=== PATIENT | male | born 1940 | race Caucasian/White ===

== ENCOUNTER 2019-10-22 12:56 | Inpatient (IN) | payer MEDICARE, OTHER ==
[~2019-10-22] VITALS: Ht 172.7 cm; Wt 84.7 kg
[2019-10-22] MEDS ORDERED: IPRATROPIUM BROM 0.5 MG/2.5ML INH SOL HHN ONE (13:30)
[2019-10-22] MEDS ORDERED: methylPREDNISolone SOD SUCC 125 MG/2 ML VL IV ONE (13:30)
[2019-10-22] MEDS ORDERED: ALBUTEROL SULF 2.5 MG/0.5ML(0.5%) NEB SOLN HHN ONE (13:30)
[2019-10-22 13:43] LABS: Basophils # (auto) 0 uL; Basophils % (auto) 0.3 % (0.0-2.0); Eosinophils # (auto) 0 uL; Eosinophils % (auto) 0.5 % (0.0-7.0); Hematocrit 37.6 % (41.0-53.0); Hemoglobin 12.4 g/dL (13.5-17.5); Lymphocytes # (auto) 0.5 uL; Lymphocytes % (auto) 5.7 % (10.0-50.0); Mean Corpuscular Volume 93.9 fL (80.0-100.0); Monocytes # (auto) 0.6 uL; Monocytes % (auto) 6.6 % (0.0-12.0); Neutrophils # (auto) 7.4 uL; Neutrophils % (auto) 86.9 % (37.0-80.0); Platelet Count (auto) 230 10^3/uL (140-450); Red Blood Cells 4.01 10^6/uL (4.5-5.90); Red Cell Distribution Width 15.2 % (11.8-14.3); White Blood Cell 8.5 10^3/uL (4.4-10.8)
[2019-10-22 14:00] LABS: Alanine Aminotransferase 24 U/L (16-61); Albumin 3.6 g/dL (3.4-5.0); Anion Gap 9 (5-15); Aspartate Aminotransferase 11 U/L (15-37); BUN/Creatinine Ratio 24.8; Blood Urea Nitrogen 32 mg/dL (7-18); Calcium 9.6 mg/dL (8.5-10.1); Carbon Dioxide 25 mmol/L (21-32); Chloride 108 mmol/L (98-107); GFR African American 69 mL/min; GFR Non-African American 57 mL/min; Glucose 118 mg/dL (74-106); Potassium 4.6 mmol/L (3.5-5.1); Sodium 142 mmol/L (136-145)
[2019-10-22 14:02] LABS: Lactic Acid w/Reflex 2.1 mmol/L (0.4-2.0)
[2019-10-22 14:05] LABS: Alkaline Phosphatase 61 U/L (45-117); Bilirubin, Total 0.4 mg/dL (0.2-1.0); Total Protein 7.6 g/dL (6.4-8.2)
[2019-10-22 18:21] LABS: INR 2.32 (0.9-1.15); Partial Thromboplastin Time 36.5 sec (23.64-32.05)
[2019-10-22] MEDS ORDERED: ACETAMINOPHEN 325 MG TAB PO ONE (18:45)
[2019-10-22] MEDS ORDERED: MORPHINE SULF INJ 2 MG/ML SYRINGE 1ML IV PRN ×2 (19:00)
[2019-10-22] MEDS ORDERED: ONDANSETRON HCL 4 MG/2 ML VIAL IV PRN (19:00)
[2019-10-22] MEDS ORDERED: NITROGLYCERIN 0.4 MG SL TAB SL PRN (19:00)
[2019-10-22] MEDS ORDERED: AZITHROMYCIN 250 MG TAB PO ONE (19:00)
[2019-10-22 20:30] VITALS: BP 122/77
--- NOTE | 2019-10-22 20:30 | NUR ---
Telemetry admit from ER PURVIMELO admitted to Telemetry unit after SBAR received. Patient oriented to Kathi Muniz, primary RN, unit, room, bed, and unit policies regarding patient care and visiting hours. Patient now on continuous telemetry monitoring, tele box # 26 and telemetry reading on arrival to unit is 102. Patient placed on bedside oxygen, weighed by bedscale and encouraged to call if they need something. All questions and concerns addressed, patient verbalized understanding. Note:
[2019-10-22 21:08] VITALS: BP 130/79
[2019-10-22] MEDS: FUROSEMIDE 20 MG/2 ML VIAL IV SCH (21:08)
[2019-10-22] MEDS: cefTRIAXone 1GM/50ML D5W 50 ML IV SCH (21:09)
[2019-10-22] MEDS ORDERED: IPRATROPIUM BROM 0.5 MG/2.5ML INH SOL ONE (21:43)
[2019-10-22] MEDS ORDERED: ALBUTEROL SULF 2.5 MG/0.5ML(0.5%) NEB SOLN ONE (21:43)
[2019-10-22] MEDS: IPRATROPIUM BROM 0.5 MG/2.5ML INH SOL NEB SCH (21:58)
[2019-10-22] MEDS: ALBUTEROL SULF 2.5 MG/0.5ML(0.5%) NEB SOLN NEB SCH (21:58)
[2019-10-22] MEDS: methylPREDNISolone SOD SUCC 125 MG/2 ML VL IV SCH (22:02)
[2019-10-22] MEDS: DILTIAZEM HCL 60 MG TAB PO SCH (22:04)
[2019-10-22 23:30] LABS: Urine Bacteria NONE SEEN /hpf (None Seen); Urine Blood Negative /uL (Negative); Urine Hyaline Cast FEW /lpf (0 - 2); Urine Specific Gravity 1.011 (1.001-1.035); Urine WBC 1 /hpf (0 - 3)
[2019-10-23] VITALS (7 sets, daily range): BP systolic 105–137; BP diastolic 53–77
[2019-10-23] MEDS: ACETAMINOPHEN 500 MG TAB PO PRN ×3 (01:09→19:03)
--- NOTE | 2019-10-23 02:30 | NUR ---
FOUND PT WITH CPAP MASK REMOVED ON ROOM AIR SPO2 92%, PT STATED HE CAN'T TOLERATE AT THIS TIME. CPAP IS GIVING HIM A HEADACHE. PT PLACED ON 3LPM NC AND TOLERATING WELL.
[2019-10-23] MEDS: HYDROcodone-ACET 5/325MG TAB PO PRN ×2 (04:10→21:29)
[2019-10-23] MEDS: FUROSEMIDE 20 MG/2 ML VIAL IV SCH ×2 (05:42→18:00)
[2019-10-23] MEDS: DILTIAZEM HCL 60 MG TAB PO SCH ×3 (05:43→21:24)
[2019-10-23 06:02] LABS: Basophils # (auto) 0 uL; Eosinophils # (auto) 0 uL; Hematocrit 35.2 % (41.0-53.0); Hemoglobin 11.5 g/dL (13.5-17.5); Lymphocytes # (auto) 0.4 uL; Lymphocytes % (auto) 2.7 % (10.0-50.0); Mean Corpuscular Hemoglobin 30.4 pg (28.0-32.0); Mean Corpuscular Hgb Conc. 32.5 g/dL (32.0-36.0); Mean Corpuscular Volume 93.5 fL (80.0-100.0); Monocytes # (auto) 0.7 uL; Monocytes % (auto) 4.6 % (0.0-12.0); Neutrophils # (auto) 13.5 uL; Neutrophils % (auto) 92.7 % (37.0-80.0); Platelet Count (auto) 219 10^3/uL (140-450); Red Blood Cells 3.77 10^6/uL (4.5-5.90); White Blood Cell 14.6 10^3/uL (4.4-10.8)
[2019-10-23] MEDS: ALBUTEROL SULF 2.5 MG/0.5ML(0.5%) NEB SOLN NEB SCH ×3 (06:16→19:32)
[2019-10-23] MEDS: IPRATROPIUM BROM 0.5 MG/2.5ML INH SOL NEB SCH ×3 (06:16→19:32)
[2019-10-23 06:21] LABS: BUN/Creatinine Ratio 28.8; Calcium 9.1 mg/dL (8.5-10.1); Potassium 4.5 mmol/L (3.5-5.1)
[2019-10-23 06:26] LABS: INR 2.52 (0.9-1.15)
--- NOTE | 2019-10-23 07:30 | NUR ---
Opening Shift Note Assumed care of patient, awake and alert. No S/S of distress/SOB. Pt denies having any pain at this time. Bed in lowest and locked position with side rails up x2 and call light within reach. Instructed on POC and to call for assist PRN, will continue to monitor for changes Q1hr and PRN.
[2019-10-23] MEDS ORDERED: cefTRIAXone 1GM/50ML D5W 50 ML IV SCH (09:00)
[2019-10-23] MEDS ORDERED: HYDR-4833 PO (09:31)
[2019-10-23] MEDS ORDERED: LISI-285 PO (09:31)
[2019-10-23] MEDS ORDERED: POTA1TAB61 PO (09:31)
[2019-10-23] MEDS ORDERED: TAMS0.4C36 PO (09:31)
[2019-10-23] MEDS ORDERED: FURO40TA4 PO (09:31)
[2019-10-23] MEDS ORDERED: WARF5TAB71 PO (09:31)
[2019-10-23] MEDS ORDERED: PRE1T PO (09:31)
[2019-10-23] MEDS ORDERED: AZITHROMYCIN 250 MG TAB PO SCH (10:00)
[2019-10-23] MEDS ORDERED: FAMOTIDINE 20 MG TAB PO SCH (10:00)
[2019-10-23] MEDS: methylPREDNISolone SOD SUCC 125 MG/2 ML VL IV SCH ×2 (10:15→21:23)
[2019-10-23] MEDS: cefTRIAXone 1GM/50ML D5W 50 ML IV SCH ×2 (10:16→20:37)
[2019-10-23] MEDS ORDERED: AZITHROMYCIN 500MG/ 250ML 250 ML IV ONE (11:15)
--- NOTE | 2019-10-23 11:26 | NUR ---
SPUTUM SAMPLE PT COUGHED UP SPUTUM SAMPLE INTO SPECIMEN CUP. SAMPLE SENT TO LAB.
--- NOTE | 2019-10-23 14:45 | NUR ---
PAGED DR. YA. AWAITING CALL BACK.
--- NOTE | 2019-10-23 14:48 | NUR ---
RECEIVED CALL FROM DR. YA. RN UPDATED DR. YA ON PT STATUS. AWARE. NO NEW ORDERS RECEIVED AT THIS TIME.
[2019-10-23] MEDS ORDERED: WARFARIN SODIUM 1 MG TAB PO ONE (17:00)
--- NOTE | 2019-10-23 18:00 | NUR ---
DR. YA AT PTS BEDSIDE.
--- NOTE | 2019-10-23 19:20 | NUR ---
assumed care, pt. awake, relatives at bedside, no c/o headache at this time, no sob.
[2019-10-23] MEDS: BUDESONIDE (INHALATION) 0.5 MG/2 ML NEB NEB SCH (19:32)
[2019-10-23] MEDS: POTASSIUM CHL 10 Meq TABLET PO SCH (21:25)
--- NOTE | 2019-10-24 04:08 | NUR ---
RT NOTE ROUTINE CPAP CHECK DONE. PT IS ON HOSPITAL OWNED CPAP RESPIRATORY 1 WITH MEDIUM MASK ON STATED SETTINGS. CPAP IS PLUGGED TO RED OUTLET. BEDSIDE POX NOTED. PT IS SLEEPING COMFORTABLY AND IS TOLERATING CPAP WELL. WATER LEVEL ADEQUATE. NO SIGNS OF ANY RESPIRATORY DISTRESS NOTED. WILL CONTINUE TO MONITOR PT. POX 98% Addendum: 10/24/19 at 0421 by Ladan Monahan RT Amended: Links added.
[2019-10-24 05:00] VITALS: BP 169/76
[2019-10-24] MEDS: FUROSEMIDE 20 MG/2 ML VIAL IV SCH (05:21)
[2019-10-24] MEDS: DILTIAZEM HCL 60 MG TAB PO SCH ×3 (05:21→21:32)
[2019-10-24] MEDS: ACETAMINOPHEN 500 MG TAB PO PRN ×2 (05:22→14:21)
[2019-10-24 06:06] LABS: INR 2.46 (0.9-1.15)
[2019-10-24 06:09] LABS: BUN/Creatinine Ratio 36.8; Calcium 9.5 mg/dL (8.5-10.1); Magnesium 2.3 mg/dL (1.6-2.6); Potassium 4.5 mmol/L (3.5-5.1)
[2019-10-24] MEDS: BUDESONIDE (INHALATION) 0.5 MG/2 ML NEB NEB SCH ×2 (07:17→18:37)
[2019-10-24] MEDS: ALBUTEROL SULF 2.5 MG/0.5ML(0.5%) NEB SOLN NEB SCH ×3 (07:17→18:30)
[2019-10-24] MEDS: IPRATROPIUM BROM 0.5 MG/2.5ML INH SOL NEB SCH ×3 (07:17→18:30)
--- NOTE | 2019-10-24 07:50 | NUR ---
Patient in bed, awake, oriented x4, coughing noted. On O2 at 4 LPM. CPAP at bedside to use at bedtime.
[2019-10-24] MEDS: AZITHROMYCIN 500MG/ 250ML 250 ML IV SCH (09:58)
[2019-10-24] MEDS: cefTRIAXone 1GM/50ML D5W 50 ML IV SCH ×2 (09:58→21:31)
[2019-10-24] MEDS: methylPREDNISolone SOD SUCC 125 MG/2 ML VL IV SCH (09:59)
[2019-10-24] MEDS: POTASSIUM CHL 10 Meq TABLET PO SCH (09:59)
--- NOTE | 2019-10-24 10:00 | NUR ---
Family member at bedside.
--- NOTE | 2019-10-24 10:36 | NUR ---
Dr. Coronel at bedside. MD spoke with the patient and family member. Patient for possible discharge tomorrow.
--- NOTE | 2019-10-24 12:00 | NUR ---
Dr. Muniz came over for Pulmonology Consult follow up. said patient can go home as per Pulmonology perspective. Patient to go home tomorrow, Monday as per Dr. Coronel.
[2019-10-24 13:00] VITALS: BP 129/75
--- NOTE | 2019-10-24 14:22 | NUR ---
Tylenol PO given for headache.
[2019-10-24 17:00] VITALS: BP 124/69
[2019-10-24] MEDS ORDERED: WARFARIN SODIUM 2.5 MG TAB PO ONE (17:00)
[2019-10-24] MEDS: HYDROcodone-ACET 5/325MG TAB PO PRN (18:02)
--- NOTE | 2019-10-24 18:02 | NUR ---
Campbell 5/325 PO given for shoulder pain.
[2019-10-24] MEDS: ACETYLCYSTEINE 10 %(100MG/ML) SOL 4ML NEB SCH (18:30)
--- NOTE | 2019-10-24 18:57 | NUR ---
Patient complained of diarrhea. Will page the hospitalist for anti-diarrheal medication.
--- NOTE | 2019-10-24 18:58 | NUR ---
Paged Hospitalist flight operations inspector.
--- NOTE | 2019-10-24 19:35 | NUR ---
Opening Shift Note Assumed care of patient, awake and alert, ambulatory with steady gait. No S/S of pain. Instructed on POC and to call for assist PRN, patient verbalized understanding, call light within reach, will continue to monitor for changes Q1hr and PRN.
[2019-10-24] MEDS ORDERED: LOPERAMIDE HCL 2 MG CAP PO PRN (21:15)
--- NOTE | 2019-10-24 21:15 | NUR ---
Patient complained of diarrhea 6x and requested medicine to stop it. Paged hospitalist and spoke to Ciaran and received new order at this time. Acknowledged and read back
[2019-10-24] MEDS: methylPREDNISolone SOD SUCC 40 MG/ML VL IV SCH (21:41)
[2019-10-24 22:00] VITALS: BP 127/76
--- NOTE | 2019-10-24 22:00 | NUR ---
CPAP applied by RT on duty
[2019-10-25] MEDS: HYDROcodone-ACET 5/325MG TAB PO PRN (04:47)
[2019-10-25 05:00] VITALS: BP 112/65
[2019-10-25] MEDS: DILTIAZEM HCL 60 MG TAB PO SCH (05:53)
[2019-10-25 05:59] LABS: INR 2.13 (0.9-1.15)
[2019-10-25 06:03] LABS: BUN/Creatinine Ratio 42.5; Calcium 9.3 mg/dL (8.5-10.1); Potassium 4.5 mmol/L (3.5-5.1)
[2019-10-25] MEDS: ALBUTEROL SULF 2.5 MG/0.5ML(0.5%) NEB SOLN NEB SCH ×3 (06:43→11:49)
[2019-10-25] MEDS: BUDESONIDE (INHALATION) 0.5 MG/2 ML NEB NEB SCH (06:43)
[2019-10-25] MEDS: ACETYLCYSTEINE 10 %(100MG/ML) SOL 4ML NEB SCH ×4 (06:43→11:49)
[2019-10-25] MEDS: IPRATROPIUM BROM 0.5 MG/2.5ML INH SOL NEB SCH ×3 (06:43→11:49)
--- NOTE | 2019-10-25 07:55 | NUR ---
Patient sitting up in bed, awake, oriented x4, on O2 at 4 LPM, coughing noted. No acute distress noted.
[2019-10-25] MEDS: cefTRIAXone 1GM/50ML D5W 50 ML IV SCH (08:20)
[2019-10-25] MEDS: methylPREDNISolone SOD SUCC 40 MG/ML VL IV SCH (09:27)
[2019-10-25] MEDS: AZITHROMYCIN 500MG/ 250ML 250 ML IV SCH (09:28)
--- NOTE | 2019-10-25 10:00 | NUR ---
Patient no complaints of pain.
--- NOTE | 2019-10-25 12:00 | NUR ---
Patient eating lunch. Family at bedside.
[2019-10-25 12:10] VITALS: BP 112/65
[2019-10-25] MEDS ORDERED: WARFARIN SODIUM 2 MG TAB PO ONE (17:00)
== END 2019-10-25 13:10 | disposition home or self-care (01) | DRG 193 ==
LOC: ER 12:56 → EDBD 12:56 → TELE 12:57 → TELE-CENTR 20:13
PROVIDERS: ADMIT Nurse Practitioner Acute Care; ATTEND Internal Medicine
PROC: 5A09357 Assistance with Respiratory Ventilation, Less than 24 Consecutive Hours, Continuous Positive Airway Pressure (ICD-10-PCS; principal; 2019-10-22)
PROC: 5A09357 Assistance with Respiratory Ventilation, Less than 24 Consecutive Hours, Continuous Positive Airway Pressure (ICD-10-PCS; 2019-10-23)
PROC: 5A09357 Assistance with Respiratory Ventilation, Less than 24 Consecutive Hours, Continuous Positive Airway Pressure (ICD-10-PCS; 2019-10-24)
DX: J18.9 Pneumonia, unspecified organism (principal); I50.43 Acute on chronic combined systolic (congestive) and diastolic (congestive) heart failure; J96.21 Acute and chronic respiratory failure with hypoxia; I13.0 Hypertensive heart and chronic kidney disease with heart failure and stage 1 through stage 4 chronic kidney disease, or unspecified chronic kidney disease; J44.1 Chronic obstructive pulmonary disease with (acute) exacerbation; I47.1 Supraventricular tachycardia; J44.0 Chronic obstructive pulmonary disease with (acute) lower respiratory infection; N18.3 Chronic kidney disease, stage 3 (moderate); I70.0 Atherosclerosis of aorta; M94.8X9 Other specified disorders of cartilage, unspecified sites; G89.29 Other chronic pain; I48.91 Unspecified atrial fibrillation; Z79.01 Long term (current) use of anticoagulants; Z82.49 Family history of ischemic heart disease and other diseases of the circulatory system; Z99.81 Dependence on supplemental oxygen; Z85.46 Personal history of malignant neoplasm of prostate; Z87.01 Personal history of pneumonia (recurrent); Z87.891 Personal history of nicotine dependence; Z86.711 Personal history of pulmonary embolism
CPT/HCPCS: 36415; 36600; 71045; 80048; 80053; 81001; 82805; 83605; 83735; 83880; 84484; 85025; 85610; 85730; 87040; 87070; 87205; 87493; 87804; 93306; 94640; 94644; 94660; 94668; 96374; G0378; J0696

== ENCOUNTER 2020-02-13 09:24 | Inpatient (IN) | payer MEDICARE ==
[~2020-02-13] VITALS: Ht 182.9 cm; Wt 87.0 kg
[~2020-02-13 09:24] MED LIST: FURO40TA4 PO; HYDR-4833 PO; LISI-285 PO; POTA1TAB61 PO; PRE1T PO; TAMS0.4C36 PO; WARF5TAB71 PO
[2020-02-13 10:00] LABS: Basophils # (auto) 0 10 ^3/uL (0-0.2); Basophils % (auto) 0.1 % (0.0-2.0); Eosinophils # (auto) 0 10 ^3/uL (0-0.8); Hematocrit 35.9 % (41.0-53.0); Hemoglobin 11.5 g/dL (13.5-17.5); Lymphocytes # (auto) 0.5 10 ^3/uL (0.4-5.4); Lymphocytes % (auto) 3.5 % (10.0-50.0); Mean Corpuscular Hgb Conc. 32.1 g/dL (32.0-36.0); Mean Corpuscular Volume 93.3 fL (80.0-100.0); Monocytes # (auto) 1.6 10 ^3/uL (0-1.3); Monocytes % (auto) 11.2 % (0.0-12.0); Neutrophils # (auto) 12.3 10 ^3/uL (1.6-8.6); Neutrophils % (auto) 85.2 % (37.0-80.0); Nucleated Red Blood Cells % 0.1 %; Platelet Count (auto) 323 10^3/uL (140-450); Red Blood Cells 3.85 10^6/uL (4.5-5.90); Red Cell Distribution Width 15.3 % (11.8-14.3); White Blood Cell 14.4 10^3/uL (4.4-10.8)
[2020-02-13 10:18] LABS: INR 3.55 (0.9-1.15); Partial Thromboplastin Time 55.8 sec (23.64-32.05)
[2020-02-13 10:20] LABS: Albumin 2.3 g/dL (3.4-5.0); Anion Gap 9 (5-15); Blood Urea Nitrogen 73 mg/dL (7-18); Carbon Dioxide 22 mmol/L (21-32); Chloride 106 mmol/L (98-107); Glucose 155 mg/dL (74-106); Potassium 4.7 mmol/L (3.5-5.1); Sodium 137 mmol/L (136-145)
[2020-02-13 10:25] LABS: Alanine Aminotransferase 18 U/L (16-61); Alkaline Phosphatase 71 U/L (45-117); Aspartate Aminotransferase 8 U/L (15-37); BUN/Creatinine Ratio 36.5; Bilirubin, Total 0.7 mg/dL (0.2-1.0); GFR African American 41 mL/min; GFR Non-African American 34 mL/min; Total Protein 7.4 g/dL (6.4-8.2)
[2020-02-13 11:22] LABS: Urine Bacteria NONE SEEN /hpf (None Seen); Urine Blood Negative /uL (Negative); Urine Hyaline Cast FEW /lpf (0 - 2); Urine Mucus FEW (None Seen); Urine Specific Gravity 1.018 (1.001-1.035); Urine WBC 1 /hpf (0 - 3)
[2020-02-13] MEDS ORDERED: cefTRIAXone 1GM/50ML D5W 50 ML IV ONE (11:30)
[2020-02-13] MEDS ORDERED: AZITHROMYCIN 500MG/ 250ML 250 ML IV ONE (11:30)
[2020-02-13] MEDS: SODIUM CHLORIDE 0.9% 1,000 ML IV SCH ×2 (12:28→22:42)
[2020-02-13] MEDS ORDERED: MORPHINE SULF INJ 2 MG/ML SYRINGE 1ML IV PRN (12:30)
[2020-02-13] MEDS ORDERED: levoFLOXacin 500MG 100 ML IV ONE (12:30)
[2020-02-13] MEDS ORDERED: ALBUTEROL SULF 2.5 MG/0.5ML(0.5%) NEB SOLN NEB PRN (12:30)
[2020-02-13] MEDS ORDERED: LACTULOSE 20Gm/30ML SOLN PO PRN (12:30)
[2020-02-13] MEDS ORDERED: ACETAMINOPHEN 500 MG TAB PO PRN (12:30)
[2020-02-13] MEDS ORDERED: NITROGLYCERIN 0.4 MG SL TAB SL PRN (12:30)
[2020-02-13] MEDS ORDERED: ONDANSETRON HCL 4 MG/2 ML VIAL IV PRN (12:30)
[2020-02-13] MEDS ORDERED: DEXTROSE (50%) 50ML SYRG IV PRN (12:30)
[2020-02-13 14:00] VITALS: BP_SYST 113; BP_DIAS 58; BP_DIAS 62
[2020-02-13 14:06] VITALS: BP 113/58
[2020-02-13 16:38] VITALS: BP 145/74
[2020-02-13] MEDS: CLINDAMYCIN 600MG IV 50 ML IV SCH ×2 (16:44→21:48)
[2020-02-13] MEDS: ACCU-CHEK COMFORT CURVE STRIP VI SCH ×2 (17:22→21:34)
[2020-02-13 22:00] VITALS: BP 113/70
[2020-02-14 05:00] VITALS: BP 108/68
[2020-02-14] MEDS: CLINDAMYCIN 600MG IV 50 ML IV SCH ×3 (05:30→21:34)
[2020-02-14] MEDS: ACCU-CHEK COMFORT CURVE STRIP VI SCH ×2 (05:41→11:30)
[2020-02-14 05:54] LABS: Basophils # (auto) 0 10 ^3/uL (0-0.2); Basophils % (auto) 0.1 % (0.0-2.0); Eosinophils # (auto) 0 10 ^3/uL (0-0.8); Hemoglobin 10.4 g/dL (13.5-17.5); Lymphocytes # (auto) 0.6 10 ^3/uL (0.4-5.4); Lymphocytes % (auto) 5.4 % (10.0-50.0); Mean Corpuscular Hemoglobin 31.3 pg (28.0-32.0); Mean Corpuscular Hgb Conc. 33.6 g/dL (32.0-36.0); Mean Corpuscular Volume 93.1 fL (80.0-100.0); Monocytes # (auto) 1.3 10 ^3/uL (0-1.3); Monocytes % (auto) 11.8 % (0.0-12.0); Neutrophils # (auto) 8.8 10 ^3/uL (1.6-8.6); Neutrophils % (auto) 82.7 % (37.0-80.0); Nucleated Red Blood Cells % 0.1 %; Platelet Count (auto) 262 10^3/uL (140-450); Red Blood Cells 3.33 10^6/uL (4.5-5.90); Red Cell Distribution Width 15.3 % (11.8-14.3); White Blood Cell 10.6 10^3/uL (4.4-10.8)
[2020-02-14 06:31] LABS: Potassium 4.7 mmol/L (3.5-5.1)
[2020-02-14 06:47] LABS: Albumin 1.8 g/dL (3.4-5.0); BUN/Creatinine Ratio 44.1; Bilirubin, Total 0.6 mg/dL (0.2-1.0); Calcium 8.9 mg/dL (8.5-10.1); Total Protein 6.3 g/dL (6.4-8.2)
[2020-02-14] MEDS: SODIUM CHLORIDE 0.9% 1,000 ML IV SCH ×2 (08:28→15:46)
[2020-02-14 08:57] VITALS: BP 128/67
[2020-02-14] MEDS ORDERED: levoFLOXacin 500MG 100 ML IV SCH (10:00)
[2020-02-14] MEDS: levoFLOXacin 250MG 50 ML IV SCH (10:42)
[2020-02-14 12:53] VITALS: BP 118/77
[2020-02-14] MEDS ORDERED: predniSONE 5 MG TAB PO ONE (14:00)
[2020-02-14] MEDS ORDERED: GADOTERIDOL 279.3mg/mL 20ml Vial IV ONE (14:08)
[2020-02-14] MEDS: HYDROcodone-ACET 5/325MG TAB PO PRN ×2 (15:47→21:35)
[2020-02-14 16:46] VITALS: BP 133/73
[2020-02-14] MEDS: TAMSULOSIN HYDROCHLORIDE 0.4 MG CAP PO SCH (18:36)
[2020-02-14] MEDS: IPRATROPIUM BROM 0.5 MG/2.5ML INH SOL NEB SCH (18:46)
[2020-02-14] MEDS: ALBUTEROL SULF 2.5 MG/0.5ML(0.5%) NEB SOLN NEB SCH (18:46)
[2020-02-14 22:00] VITALS: BP 125/70
[2020-02-15] MEDS: MORPHINE SULF INJ 2 MG/ML SYRINGE 1ML IV PRN (03:19)
[2020-02-15] MEDS: SODIUM CHLORIDE 0.9% 1,000 ML IV SCH ×2 (03:20→15:15)
[2020-02-15 05:00] VITALS: BP 141/72
[2020-02-15] MEDS: CLINDAMYCIN 600MG IV 50 ML IV SCH ×3 (06:12→23:09)
[2020-02-15] MEDS: HYDROcodone-ACET 5/325MG TAB PO PRN ×5 (06:13→23:46)
[2020-02-15 06:39] LABS: Basophils # (auto) 0 10 ^3/uL (0-0.2); Basophils % (auto) 0.1 % (0.0-2.0); Eosinophils # (auto) 0 10 ^3/uL (0-0.8); Hematocrit 32.1 % (41.0-53.0); Hemoglobin 10.5 g/dL (13.5-17.5); Lymphocytes # (auto) 0.8 10 ^3/uL (0.4-5.4); Lymphocytes % (auto) 6.4 % (10.0-50.0); Mean Corpuscular Hemoglobin 30.8 pg (28.0-32.0); Mean Corpuscular Hgb Conc. 32.9 g/dL (32.0-36.0); Mean Corpuscular Volume 93.5 fL (80.0-100.0); Monocytes % (auto) 7.6 % (0.0-12.0); Neutrophils # (auto) 11.4 10 ^3/uL (1.6-8.6); Neutrophils % (auto) 85.9 % (37.0-80.0); Platelet Count (auto) 322 10^3/uL (140-450); Red Blood Cells 3.43 10^6/uL (4.5-5.90); Red Cell Distribution Width 15.3 % (11.8-14.3); White Blood Cell 13.3 10^3/uL (4.4-10.8)
[2020-02-15] MEDS: IPRATROPIUM BROM 0.5 MG/2.5ML INH SOL NEB SCH ×3 (06:56→18:34)
[2020-02-15] MEDS: ALBUTEROL SULF 2.5 MG/0.5ML(0.5%) NEB SOLN NEB SCH ×3 (06:56→18:34)
[2020-02-15 06:58] LABS: BUN/Creatinine Ratio 41.1; Calcium 9.9 mg/dL (8.5-10.1)
[2020-02-15 08:48] VITALS: BP 115/61
[2020-02-15] MEDS: levoFLOXacin 250MG 50 ML IV SCH (09:15)
[2020-02-15] MEDS: predniSONE 5 MG TAB PO SCH (09:16)
[2020-02-15] MEDS ORDERED: levoFLOXacin 250MG 50 ML IV ONE (10:00)
[2020-02-15 10:16] LABS: INR > 8.0 (0.9-1.15)
[2020-02-15 12:40] VITALS: BP 124/75
[2020-02-15 16:47] VITALS: BP 113/75
[2020-02-15] MEDS: TAMSULOSIN HYDROCHLORIDE 0.4 MG CAP PO SCH (17:22)
[2020-02-15 22:00] VITALS: BP 128/67
[2020-02-16] MEDS: HYDROcodone-ACET 5/325MG TAB PO PRN ×5 (03:45→21:09)
[2020-02-16 05:00] VITALS: BP 130/70
[2020-02-16] MEDS: CLINDAMYCIN 600MG IV 50 ML IV SCH ×3 (05:26→21:08)
[2020-02-16] MEDS: SODIUM CHLORIDE 0.9% 1,000 ML IV SCH ×2 (06:00→17:05)
[2020-02-16] MEDS: IPRATROPIUM BROM 0.5 MG/2.5ML INH SOL NEB SCH ×3 (06:49→18:25)
[2020-02-16] MEDS: ALBUTEROL SULF 2.5 MG/0.5ML(0.5%) NEB SOLN NEB SCH ×3 (06:49→18:25)
[2020-02-16 07:49] LABS: Partial Thromboplastin Time 97.3 sec (23.64-32.05)
[2020-02-16 07:52] LABS: INR > 8.0 (0.9-1.15)
[2020-02-16 09:00] VITALS: BP 141/69
[2020-02-16] MEDS: levoFLOXacin 500MG 100 ML IV SCH (09:02)
[2020-02-16] MEDS: predniSONE 5 MG TAB PO SCH (09:02)
[2020-02-16 13:00] VITALS: BP 133/67
[2020-02-16 13:04] VITALS: BP 161/69
[2020-02-16 17:00] VITALS: BP 102/60
[2020-02-16] MEDS: TAMSULOSIN HYDROCHLORIDE 0.4 MG CAP PO SCH (17:04)
[2020-02-16 22:00] VITALS: BP 134/76
[2020-02-17] MEDS: HYDROcodone-ACET 5/325MG TAB PO PRN ×4 (01:25→21:15)
[2020-02-17] MEDS: SODIUM CHLORIDE 0.9% 1,000 ML IV SCH (04:29)
[2020-02-17] MEDS: CLINDAMYCIN 600MG IV 50 ML IV SCH ×3 (05:02→21:15)
[2020-02-17 05:26] VITALS: BP 140/73
[2020-02-17] MEDS: IPRATROPIUM BROM 0.5 MG/2.5ML INH SOL NEB SCH ×3 (06:39→19:01)
[2020-02-17] MEDS: ALBUTEROL SULF 2.5 MG/0.5ML(0.5%) NEB SOLN NEB SCH ×3 (06:39→19:00)
[2020-02-17 06:59] LABS: INR > 8.0 (0.9-1.15); Partial Thromboplastin Time 93.9 sec (23.64-32.05)
[2020-02-17 08:00] VITALS: BP 128/71
[2020-02-17] MEDS: predniSONE 5 MG TAB PO SCH (09:52)
[2020-02-17] MEDS: levoFLOXacin 500MG 100 ML IV SCH (09:52)
[2020-02-17 12:00] VITALS: BP 110/69
[2020-02-17 17:00] VITALS: BP 116/67
[2020-02-17] MEDS: TAMSULOSIN HYDROCHLORIDE 0.4 MG CAP PO SCH (17:48)
[2020-02-17 22:11] VITALS: BP 138/69
[2020-02-18] MEDS: HYDROcodone-ACET 5/325MG TAB PO PRN ×4 (03:09→21:04)
[2020-02-18] MEDS: CLINDAMYCIN 600MG IV 50 ML IV SCH ×3 (05:17→21:03)
[2020-02-18 05:46] VITALS: BP 117/62
[2020-02-18 05:51] LABS: Basophils # (auto) 0 10 ^3/uL (0-0.2); Basophils % (auto) 0.2 % (0.0-2.0); Eosinophils # (auto) 0 10 ^3/uL (0-0.8); Eosinophils % (auto) 0.1 % (0.0-7.0); Hematocrit 29.9 % (41.0-53.0); Hemoglobin 9.9 g/dL (13.5-17.5); Mean Corpuscular Hemoglobin 30.4 pg (28.0-32.0); Monocytes # (auto) 1.3 10 ^3/uL (0-1.3); Neutrophils # (auto) 13.9 10 ^3/uL (1.6-8.6); Neutrophils % (auto) 85.7 % (37.0-80.0); Platelet Count (auto) 391 10^3/uL (140-450); Red Blood Cells 3.25 10^6/uL (4.5-5.90); Red Cell Distribution Width 15.2 % (11.8-14.3); White Blood Cell 16.3 10^3/uL (4.4-10.8)
[2020-02-18 06:21] LABS: BUN/Creatinine Ratio 37.5; Calcium 9.1 mg/dL (8.5-10.1); Potassium 5.5 mmol/L (3.5-5.1)
[2020-02-18 06:22] LABS: INR 5.78 (0.9-1.15); Partial Thromboplastin Time 72.4 sec (23.64-32.05)
[2020-02-18] MEDS: ALBUTEROL SULF 2.5 MG/0.5ML(0.5%) NEB SOLN NEB SCH ×3 (06:24→19:58)
[2020-02-18] MEDS: IPRATROPIUM BROM 0.5 MG/2.5ML INH SOL NEB SCH ×3 (06:24→19:58)
[2020-02-18 08:00] VITALS: BP 120/66
[2020-02-18 09:06] VITALS: BP 120/66
[2020-02-18] MEDS: predniSONE 5 MG TAB PO SCH (09:41)
[2020-02-18 13:00] VITALS: BP 122/64
[2020-02-18 16:24] VITALS: BP 120/68
[2020-02-18] MEDS ORDERED: Ensure HIGH Protein Chocolate 8oz Bottle PO SCH (18:00)
[2020-02-18] MEDS: TAMSULOSIN HYDROCHLORIDE 0.4 MG CAP PO SCH (18:50)
[2020-02-18 20:00] VITALS: BP 120/62
[2020-02-19] MEDS: HYDROcodone-ACET 5/325MG TAB PO PRN ×4 (03:15→21:59)
[2020-02-19 05:00] VITALS: BP 108/68
[2020-02-19 06:10] LABS: Basophils # (auto) 0 10 ^3/uL (0-0.2); Basophils % (auto) 0.2 % (0.0-2.0); Eosinophils # (auto) 0 10 ^3/uL (0-0.8); Eosinophils % (auto) 0.3 % (0.0-7.0); Hematocrit 30.3 % (41.0-53.0); Lymphocytes # (auto) 1.1 10 ^3/uL (0.4-5.4); Lymphocytes % (auto) 6.2 % (10.0-50.0); Mean Corpuscular Hemoglobin 30.3 pg (28.0-32.0); Monocytes # (auto) 1.1 10 ^3/uL (0-1.3); Monocytes % (auto) 5.9 % (0.0-12.0); Neutrophils # (auto) 15.9 10 ^3/uL (1.6-8.6); Neutrophils % (auto) 87.4 % (37.0-80.0); Platelet Count (auto) 427 10^3/uL (140-450); Red Blood Cells 3.29 10^6/uL (4.5-5.90); White Blood Cell 18.2 10^3/uL (4.4-10.8)
[2020-02-19] MEDS: CLINDAMYCIN 600MG IV 50 ML IV SCH (06:18)
[2020-02-19 06:35] LABS: Partial Thromboplastin Time 60.1 sec (23.64-32.05)
[2020-02-19 06:37] LABS: INR 4.11 (0.9-1.15)
[2020-02-19 06:41] LABS: Potassium 5.1 mmol/L (3.5-5.1)
[2020-02-19 06:43] LABS: BUN/Creatinine Ratio 41.4; Calcium 9.5 mg/dL (8.5-10.1)
[2020-02-19] MEDS: ALBUTEROL SULF 2.5 MG/0.5ML(0.5%) NEB SOLN NEB SCH ×3 (06:45→19:18)
[2020-02-19] MEDS: IPRATROPIUM BROM 0.5 MG/2.5ML INH SOL NEB SCH ×3 (06:45→19:18)
[2020-02-19 08:00] VITALS: BP 127/67
[2020-02-19] MEDS: predniSONE 5 MG TAB PO SCH (09:45)
[2020-02-19] MEDS: MORPHINE SULF INJ 2 MG/ML SYRINGE 1ML IV PRN (09:45)
[2020-02-19 12:00] VITALS: BP 152/74
[2020-02-19 15:10] VITALS: BP 152/74
[2020-02-19 16:48] VITALS: BP 106/67
[2020-02-19] MEDS ORDERED: CLINDAMYCIN HCL 150 MG CAP PO SCH (18:00)
[2020-02-19] MEDS: TAMSULOSIN HYDROCHLORIDE 0.4 MG CAP PO SCH (18:06)
[2020-02-19 21:47] VITALS: BP 117/59
[2020-02-19] MEDS: CLINDAMYCIN HCL 150 MG CAP PO SCH (21:56)
[2020-02-20 05:00] VITALS: BP 119/66
[2020-02-20 05:12] LABS: Basophils # (auto) 0 10 ^3/uL (0-0.2); Basophils % (auto) 0.2 % (0.0-2.0); Eosinophils # (auto) 0.1 10 ^3/uL (0-0.8); Eosinophils % (auto) 0.4 % (0.0-7.0); Lymphocytes # (auto) 1.4 10 ^3/uL (0.4-5.4); Lymphocytes % (auto) 9.4 % (10.0-50.0); Mean Corpuscular Hemoglobin 30.7 pg (28.0-32.0); Mean Corpuscular Hgb Conc. 33.5 g/dL (32.0-36.0); Mean Corpuscular Volume 91.8 fL (80.0-100.0); Monocytes # (auto) 1.1 10 ^3/uL (0-1.3); Monocytes % (auto) 7.1 % (0.0-12.0); Neutrophils # (auto) 12.2 10 ^3/uL (1.6-8.6); Neutrophils % (auto) 82.9 % (37.0-80.0); Nucleated Red Blood Cells % 0.1 %; Platelet Count (auto) 462 10^3/uL (140-450); Red Blood Cells 3.27 10^6/uL (4.5-5.90); Red Cell Distribution Width 15.2 % (11.8-14.3); White Blood Cell 14.7 10^3/uL (4.4-10.8)
[2020-02-20 05:18] LABS: Calcium 9.4 mg/dL (8.5-10.1); Potassium 4.8 mmol/L (3.5-5.1)
[2020-02-20 05:19] LABS: INR 2.62 (0.9-1.15); Partial Thromboplastin Time 53.7 sec (23.64-32.05)
[2020-02-20 05:20] LABS: BUN/Creatinine Ratio 44.9
[2020-02-20] MEDS: CLINDAMYCIN HCL 150 MG CAP PO SCH ×3 (05:58→21:55)
[2020-02-20] MEDS: HYDROcodone-ACET 5/325MG TAB PO PRN ×3 (06:06→21:58)
[2020-02-20] MEDS: ALBUTEROL SULF 2.5 MG/0.5ML(0.5%) NEB SOLN NEB SCH ×3 (07:01→19:50)
[2020-02-20] MEDS: IPRATROPIUM BROM 0.5 MG/2.5ML INH SOL NEB SCH ×3 (07:01→19:50)
[2020-02-20 08:01] VITALS: BP 109/51
[2020-02-20] MEDS: predniSONE 5 MG TAB PO SCH (10:40)
[2020-02-20 12:00] VITALS: BP 116/65
[2020-02-20 16:42] VITALS: BP 132/69
[2020-02-20] MEDS ORDERED: WARFARIN SODIUM 1 MG TAB PO ONE (17:00)
[2020-02-20] MEDS: TAMSULOSIN HYDROCHLORIDE 0.4 MG CAP PO SCH (19:00)
[2020-02-20 21:29] VITALS: BP 121/67
[2020-02-21 05:33] VITALS: BP 112/59
[2020-02-21] MEDS: CLINDAMYCIN HCL 150 MG CAP PO SCH ×3 (06:11→22:23)
[2020-02-21] MEDS: IPRATROPIUM BROM 0.5 MG/2.5ML INH SOL NEB SCH ×3 (06:15→18:03)
[2020-02-21] MEDS: ALBUTEROL SULF 2.5 MG/0.5ML(0.5%) NEB SOLN NEB SCH ×3 (06:15→18:03)
[2020-02-21] MEDS: HYDROcodone-ACET 5/325MG TAB PO PRN ×2 (06:47→10:52)
[2020-02-21 08:00] VITALS: BP 106/63
[2020-02-21 08:05] LABS: Basophils # (auto) 0 10 ^3/uL (0-0.2); Basophils % (auto) 0.2 % (0.0-2.0); Eosinophils # (auto) 0.1 10 ^3/uL (0-0.8); Eosinophils % (auto) 0.4 % (0.0-7.0); Hematocrit 29.5 % (41.0-53.0); Hemoglobin 9.5 g/dL (13.5-17.5); Lymphocytes # (auto) 1.4 10 ^3/uL (0.4-5.4); Mean Corpuscular Hemoglobin 29.3 pg (28.0-32.0); Mean Corpuscular Hgb Conc. 32.1 g/dL (32.0-36.0); Mean Corpuscular Volume 91.1 fL (80.0-100.0); Monocytes # (auto) 1.3 10 ^3/uL (0-1.3); Monocytes % (auto) 8.6 % (0.0-12.0); Neutrophils # (auto) 12.5 10 ^3/uL (1.6-8.6); Neutrophils % (auto) 81.8 % (37.0-80.0); Platelet Count (auto) 510 10^3/uL (140-450); Red Blood Cells 3.24 10^6/uL (4.5-5.90); Red Cell Distribution Width 14.5 % (11.8-14.3); White Blood Cell 15.3 10^3/uL (4.4-10.8)
[2020-02-21 08:17] LABS: Calcium 9.5 mg/dL (8.5-10.1); Potassium 4.7 mmol/L (3.5-5.1)
[2020-02-21 08:28] LABS: INR 2.01 (0.9-1.15)
[2020-02-21] MEDS: predniSONE 5 MG TAB PO SCH (10:40)
[2020-02-21 12:00] VITALS: BP 133/72
[2020-02-21 16:00] VITALS: BP 143/81
[2020-02-21] MEDS ORDERED: WARFARIN SODIUM 2 MG TAB PO ONE (17:00)
[2020-02-21] MEDS: TAMSULOSIN HYDROCHLORIDE 0.4 MG CAP PO SCH (18:30)
[2020-02-21] MEDS: HYDROcodone-ACET 10/325MG TAB PO PRN (18:42)
[2020-02-21 22:00] VITALS: BP 116/67
[2020-02-22 04:55] VITALS: BP 119/69
[2020-02-22] MEDS: IPRATROPIUM BROM 0.5 MG/2.5ML INH SOL NEB SCH ×3 (05:58→19:07)
[2020-02-22] MEDS: ALBUTEROL SULF 2.5 MG/0.5ML(0.5%) NEB SOLN NEB SCH ×3 (05:58→19:07)
[2020-02-22] MEDS: CLINDAMYCIN HCL 150 MG CAP PO SCH ×3 (06:23→21:59)
[2020-02-22] MEDS: HYDROcodone-ACET 10/325MG TAB PO PRN ×3 (06:24→18:06)
[2020-02-22 09:00] VITALS: BP 118/70
[2020-02-22 09:19] VITALS: BP 119/69
[2020-02-22 09:24] LABS: INR 2.07 (0.9-1.15)
[2020-02-22] MEDS: predniSONE 5 MG TAB PO SCH (10:30)
[2020-02-22 13:00] VITALS: BP 127/79
[2020-02-22 17:00] VITALS: BP 120/77
[2020-02-22] MEDS ORDERED: WARFARIN SODIUM 2 MG TAB PO ONE (17:00)
[2020-02-22] MEDS: TAMSULOSIN HYDROCHLORIDE 0.4 MG CAP PO SCH (18:06)
[2020-02-22 23:01] VITALS: BP 135/66
[2020-02-23 05:54] VITALS: BP 155/69
[2020-02-23] MEDS: CLINDAMYCIN HCL 150 MG CAP PO SCH ×3 (06:08→21:33)
[2020-02-23] MEDS: HYDROcodone-ACET 10/325MG TAB PO PRN ×2 (06:09→18:13)
[2020-02-23] MEDS: ALBUTEROL SULF 2.5 MG/0.5ML(0.5%) NEB SOLN NEB SCH ×3 (06:10→19:14)
[2020-02-23] MEDS: IPRATROPIUM BROM 0.5 MG/2.5ML INH SOL NEB SCH ×3 (06:10→19:14)
[2020-02-23 07:32] LABS: Basophils # (auto) 0 10 ^3/uL (0-0.2); Eosinophils # (auto) 0.1 10 ^3/uL (0-0.8); Neutrophils # (auto) 11.8 10 ^3/uL (1.6-8.6)
[2020-02-23 07:34] LABS: Basophils % (auto) 0.2 % (0.0-2.0); Eosinophils % (auto) 0.9 % (0.0-7.0); Hematocrit 29.7 % (41.0-53.0); Hemoglobin 9.7 g/dL (13.5-17.5); Lymphocytes % (auto) 13.3 % (10.0-50.0); Mean Corpuscular Hemoglobin 29.8 pg (28.0-32.0); Mean Corpuscular Hgb Conc. 32.8 g/dL (32.0-36.0); Mean Corpuscular Volume 91.1 fL (80.0-100.0); Monocytes % (auto) 6.9 % (0.0-12.0); Neutrophils % (auto) 78.7 % (37.0-80.0); Platelet Count (auto) 584 10^3/uL (140-450); Red Blood Cells 3.26 10^6/uL (4.5-5.90); Red Cell Distribution Width 14.9 % (11.8-14.3)
[2020-02-23 07:46] LABS: INR 2.22 (0.9-1.15)
[2020-02-23 08:28] VITALS: BP 116/73
[2020-02-23] MEDS: predniSONE 5 MG TAB PO SCH (10:30)
[2020-02-23 13:00] VITALS: BP 123/69
[2020-02-23 17:00] VITALS: BP 94/70
[2020-02-23] MEDS ORDERED: WARFARIN SODIUM 2.5 MG TAB PO ONE (17:00)
[2020-02-23] MEDS: TAMSULOSIN HYDROCHLORIDE 0.4 MG CAP PO SCH (17:47)
[2020-02-24] MEDS: HYDROcodone-ACET 10/325MG TAB PO PRN ×3 (00:23→18:26)
[2020-02-24 05:15] VITALS: BP 117/68
[2020-02-24] MEDS: CLINDAMYCIN HCL 150 MG CAP PO SCH ×3 (05:30→21:29)
[2020-02-24] MEDS: ALBUTEROL SULF 2.5 MG/0.5ML(0.5%) NEB SOLN NEB SCH ×3 (07:00→18:53)
[2020-02-24] MEDS: IPRATROPIUM BROM 0.5 MG/2.5ML INH SOL NEB SCH ×3 (07:00→18:53)
[2020-02-24 07:22] LABS: INR 2.43 (0.9-1.15); Partial Thromboplastin Time 42.4 sec (23.64-32.05)
[2020-02-24 08:00] VITALS: BP 117/78
[2020-02-24 09:00] VITALS: BP 117/78
[2020-02-24] MEDS: predniSONE 5 MG TAB PO SCH (09:56)
[2020-02-24 13:00] VITALS: BP 123/66
[2020-02-24] MEDS ORDERED: WARFARIN SODIUM 2.5 MG TAB PO ONE (17:00)
[2020-02-24] MEDS: TAMSULOSIN HYDROCHLORIDE 0.4 MG CAP PO SCH (18:25)
[2020-02-24 21:40] VITALS: BP 116/66
[2020-02-25 04:47] VITALS: BP 108/65
[2020-02-25] MEDS: CLINDAMYCIN HCL 150 MG CAP PO SCH (05:39)
[2020-02-25] MEDS: ALBUTEROL SULF 2.5 MG/0.5ML(0.5%) NEB SOLN NEB SCH ×2 (05:54→11:18)
[2020-02-25] MEDS: IPRATROPIUM BROM 0.5 MG/2.5ML INH SOL NEB SCH ×2 (05:54→11:18)
[2020-02-25] MEDS: HYDROcodone-ACET 10/325MG TAB PO PRN ×2 (05:57→12:02)
[2020-02-25 07:23] LABS: INR 2.44 (0.9-1.15)
[2020-02-25 08:00] VITALS: BP 110/65
[2020-02-25 09:02] VITALS: BP 110/65
[2020-02-25] MEDS: predniSONE 5 MG TAB PO SCH (10:18)
[2020-02-25 10:37] VITALS: BP 109/61
[2020-02-25 12:46] VITALS: BP 111/60
== END 2020-02-25 14:05 | DRG 871 ==
LOC: EDBD 09:24 → ER 09:24 → TELE 09:25 → TELE-WESTW 13:33 → WEST WING 02-23 06:54
PROVIDERS: ADMIT Internal Medicine; ATTEND Internal Medicine
DX: A41.02 Sepsis due to Methicillin resistant Staphylococcus aureus (principal); N17.0 Acute kidney failure with tubular necrosis; L03.115 Cellulitis of right lower limb; J96.10 Chronic respiratory failure, unspecified whether with hypoxia or hypercapnia; J98.11 Atelectasis; D68.69 Other thrombophilia; I13.0 Hypertensive heart and chronic kidney disease with heart failure and stage 1 through stage 4 chronic kidney disease, or unspecified chronic kidney disease; I50.32 Chronic diastolic (congestive) heart failure; E44.0 Moderate protein-calorie malnutrition; T14.8XXA Other injury of unspecified body region, initial encounter; S76.911A Strain of unspecified muscles, fascia and tendons at thigh level, right thigh, initial encounter; G89.4 Chronic pain syndrome; I48.91 Unspecified atrial fibrillation; M94.8X9 Other specified disorders of cartilage, unspecified sites; S42.101A Fracture of unspecified part of scapula, right shoulder, initial encounter for closed fracture; N40.0 Benign prostatic hyperplasia without lower urinary tract symptoms; M16.0 Bilateral primary osteoarthritis of hip; K57.90 Diverticulosis of intestine, part unspecified, without perforation or abscess without bleeding; I25.10 Atherosclerotic heart disease of native coronary artery without angina pectoris; J44.9 Chronic obstructive pulmonary disease, unspecified; N18.9 Chronic kidney disease, unspecified; W18.2XXA Fall in (into) shower or empty bathtub, initial encounter; M47.896 Other spondylosis, lumbar region; Z86.718 Personal history of other venous thrombosis and embolism; Z86.711 Personal history of pulmonary embolism; Z79.899 Other long term (current) drug therapy; Z90.89 Acquired absence of other organs; Z82.49 Family history of ischemic heart disease and other diseases of the circulatory system; Z68.26 Body mass index [BMI] 26.0-26.9, adult; Z11.59 Encounter for screening for other viral diseases; Y93.E1 Activity, personal bathing and showering
CPT/HCPCS: 36415; 71045; 73030; 73723; 74176; 80048; 80053; 81001; 82962; 83036; 83605; 83880; 84443; 84484; 85025; 85610; 85730; 87040; 87077; 87147; 87186; 93306; 94640; 96365; 96368; 97110; 97163; 97530; G0378; J0696; J1956; J2405; J3490

== ENCOUNTER 2020-04-05 09:44 | Inpatient (IN) | payer MEDICARE ==
[~2020-04-05] VITALS: Ht 172.7 cm; Wt 92.3 kg
[2020-04-05] MEDS ORDERED: AZITHROMYCIN 500MG/ 250ML 250 ML IV ONE (10:30)
[2020-04-05] MEDS ORDERED: cefTRIAXone 1GM/50ML D5W 50 ML IV ONE (10:30)
[2020-04-05 10:46] LABS: Basophils # (auto) 0 10 ^3/uL (0-0.2); Basophils % (auto) 0.3 % (0.0-2.0); Eosinophils # (auto) 0 10 ^3/uL (0-0.8); Eosinophils % (auto) 0.1 % (0.0-7.0); Hematocrit 27.2 % (41.0-53.0); Hemoglobin 8.8 g/dL (13.5-17.5); Lymphocytes # (auto) 0.8 10 ^3/uL (0.4-5.4); Lymphocytes % (auto) 12.6 % (10.0-50.0); Mean Corpuscular Hemoglobin 27.9 pg (28.0-32.0); Mean Corpuscular Hgb Conc. 32.5 g/dL (32.0-36.0); Monocytes # (auto) 0.2 10 ^3/uL (0-1.3); Monocytes % (auto) 4.1 % (0.0-12.0); Neutrophils % (auto) 82.9 % (37.0-80.0); Platelet Count (auto) 264 10^3/uL (140-450); Red Blood Cells 3.16 10^6/uL (4.5-5.90)
[2020-04-05 11:02] LABS: INR 3.32 (0.9-1.15); Partial Thromboplastin Time 59.7 sec (23.64-32.05)
[2020-04-05 11:23] LABS: Potassium 3.5 mmol/L (3.5-5.1)
[2020-04-05 11:33] LABS: Calcium 7.8 mg/dL (8.5-10.1)
[2020-04-05 11:39] LABS: Bilirubin, Total 0.4 mg/dL (0.2-1.0); Total Protein 6.5 g/dL (6.4-8.2)
[2020-04-05] MEDS ORDERED: NITROGLYCERIN 0.4 MG SL TAB SL PRN (18:00)
[2020-04-05] MEDS ORDERED: MORPHINE SULF INJ 2 MG/ML SYRINGE 1ML IV PRN (18:00)
[2020-04-05] MEDS: TAMSULOSIN HYDROCHLORIDE 0.4 MG CAP PO SCH (18:00)
[2020-04-05] MEDS: DexAMETHasone SOD PHOS 4 MG/1ML SDV INJ IV SCH (18:00)
[2020-04-05] MEDS ORDERED: ALBUTEROL SULF HFA 90MCG INH 200DOSE IN SCH ×2 (22:00)
[2020-04-05] MEDS: ALBUTEROL SULF 2.5 MG/0.5ML(0.5%) NEB SOLN NEB SCH (22:04)
[2020-04-05] MEDS: IPRATROPIUM BROM 0.5 MG/2.5ML INH SOL NEB SCH (22:04)
[2020-04-05] MEDS: DOXYCYCLINE 100 MG TAB/CAP PO SCH (22:29)
[2020-04-06] VITALS (8 sets, daily range): BP systolic 114–145; BP diastolic 61–75
--- NOTE | 2020-04-06 00:04 | NUR ---
TELE ADMIT FROM ER Patient arrived to unit via stretcher and was transferred safely onto bed. Patient currently on 5L O2 via oxymizer with saturation at 99%. Patient is A&O X's 4 with no s/s of distress and denies any pain. Patient reports minimal SOB but feels better than before. Educated patient on POC and to use call light when in need of assistance. Oriented patient to unit/call lights/tv/phone/policies. Patient verbalized understanding. Bed is in lowest/locked position with side rails up X's 2 and call light is within reach of patient. HOB remains elevated and suction next to patient. Bed alarm is on. Will continue care.
--- NOTE | 2020-04-06 00:30 | NUR ---
WOUNDS Wound to sacrum identified. Cleansed wound with wound filter screen cleaner, applied barrier cream and applied optifoam to sacrum. Patient tolerated well. Photos were taken and paper filled out for wound care nurse. Educated patient that this is a diaper free facility. Patient verbalized understanding and patient's diaper was removed. Patient reports he can use a bed fu for bathroom. Urinal is at bedside.
--- NOTE | 2020-04-06 00:30 | NUR ---
MRSA SWAB MRSA swab sent down to lab via [place] system.
[2020-04-06] MEDS: DexAMETHasone SOD PHOS 4 MG/1ML SDV INJ IV SCH ×2 (05:26→17:31)
[2020-04-06 06:20] LABS: Basophils # (auto) 0 10 ^3/uL (0-0.2); Basophils % (auto) 0.1 % (0.0-2.0); Eosinophils # (auto) 0 10 ^3/uL (0-0.8); Hematocrit 28.3 % (41.0-53.0); Hemoglobin 9.1 g/dL (13.5-17.5); Lymphocytes # (auto) 0.4 10 ^3/uL (0.4-5.4); Mean Corpuscular Hgb Conc. 32.3 g/dL (32.0-36.0); Mean Corpuscular Volume 86.6 fL (80.0-100.0); Monocytes # (auto) 0.2 10 ^3/uL (0-1.3); Monocytes % (auto) 3.8 % (0.0-12.0); Neutrophils # (auto) 3.4 10 ^3/uL (1.6-8.6); Neutrophils % (auto) 85.1 % (37.0-80.0); Nucleated Red Blood Cells % 0.1 %; Platelet Count (auto) 241 10^3/uL (140-450); Red Blood Cells 3.27 10^6/uL (4.5-5.90); Red Cell Distribution Width 16.5 % (11.8-14.3)
[2020-04-06 06:22] LABS: INR 3.24 (0.9-1.15); Partial Thromboplastin Time 62.6 sec (23.64-32.05)
[2020-04-06 06:23] LABS: Albumin 2.1 g/dL (3.4-5.0); Calcium 8.3 mg/dL (8.5-10.1); Potassium 4.3 mmol/L (3.5-5.1)
[2020-04-06 06:26] LABS: BUN/Creatinine Ratio 28.7; Bilirubin, Total 0.4 mg/dL (0.2-1.0); Total Protein 6.7 g/dL (6.4-8.2)
--- NOTE | 2020-04-06 06:31 | NUR ---
PAGED HOSPITALIST for diet order
[2020-04-06] MEDS: ALBUTEROL SULF 2.5 MG/0.5ML(0.5%) NEB SOLN NEB SCH ×4 (07:14→19:15)
[2020-04-06] MEDS: IPRATROPIUM BROM 0.5 MG/2.5ML INH SOL NEB SCH ×4 (07:14→19:15)
[2020-04-06] MEDS: DOXYCYCLINE 100 MG TAB/CAP PO SCH ×2 (09:42→21:39)
[2020-04-06] MEDS: ZINC SULFATE 220mg CAP or TAB PO SCH (09:42)
[2020-04-06] MEDS: ASCORBIC ACID 1,000 MG TAB PO SCH (09:44)
--- NOTE | 2020-04-06 10:19 | NUR ---
WOUND CARE NOTE: WOUND CARE IN TO SEE PATIENT PER WOUND CARE REQUEST. PATIENT ADMITTED TO [facility] FOR ACUTE ON CHRONIC RESPIRATORY FAILURE. BEDSIDE NURSE NOTED SKIN INTEGRITY ISSUE UPON ADMISSION. PHOTOGRAPH TAKEN AT THAT TIME FOR REFERENCE. PATIENT LAURY SCORE IS 18. PATIENT NOTED TO HAVE MASD WITH SKIN EROSION TO MEDIAL SACRUM. PATIENT ADMITS TO WEARING A DIAPER. BEDSIDE NURSE PROVIDED ZGUARD AND OPTIFOAM GENTLE SACRAL DRESSING. NO OTHER SKIN INTEGRITY ISSUES NOTED AT THIS TIME. RECOMMEND: BID/PRN DRESSING CHANGE TO MEDIAL SACRUM. REDISTRIBUTE PRESSURE USING PILLOWS AND WEDGES. SKIN/WOUND CARE PLAN. CONTINUED MONITORING BY WOUND CARE TEAM. Addendum: 04/06/20 at 1147 by MELO PALM RN RN Amended: Links added.
[2020-04-06] MEDS: Ensure HIGH Protein Chocolate 8oz Bottle PO SCH (17:32)
[2020-04-06] MEDS: TAMSULOSIN HYDROCHLORIDE 0.4 MG CAP PO SCH (17:32)
--- NOTE | 2020-04-06 18:30 | NUR ---
positive covid results received from lab. reported to charge nurse. patient to be transferred to the covid department in room 38
--- NOTE | 2020-04-06 19:15 | NUR ---
Respiratory note: ENTERED PT'S RM FOR SCHEDULED MED NEB TX. ONCE TX HAD BEGUN, CUBING MACHINE TENDER ARRIVES AT DOORWAY STATING THE PT TESTED POSITIVE FOR COVID-19. Addendum: 04/07/20 at 0328 by PRABHA MARTIN RT AND IS TO BE MOVED TO COVID UNIT. EXITED ROOM AND SHUT DOOR WHILE PT FINISHED MED NEB TX. NO ISOLATION SIGN ON DOOR, PT NOT IN NEGATIVE PRESSURE ROOM, AND PT'S DOOR WAS OPEN UPON ARRIVAL. NO NEIGHBOR NOTED IN PT'S ROOM. RT HAD ON N95, SIMPLE MASK, GLOVES AND EYE PROTECTION WAS WORN. WENT TO NURSES STATION WHERE RN HAD CONFIRMED PT DID TEST POSITIVE FOR COVID-19 AND WOULD BE TRANSPORTED TO COVID UNIT. INFORMED RN PT HAD BEEN GIVEN A MED NEB TX AND NO ONE SHOULD ENTER ROOM FOR AN HOUR WITHOUT PAPR DUE TO PT RECEIVING AEROSOLIZED MEDICATION. A SIGN HAD BEEN PLACED ON OUTSIDE DOOR INFORMING ALL TO NOT ENTER PT'S ROOM FOR AN HOUR BY RT. LEAD RT AND CHARGE NURSE NOTIFIED OF SITUATION. WILL CHANGED MED NEB TXS TO MDI TXS AND CONTINUE WITH CARE.
--- NOTE | 2020-04-06 19:30 | NUR ---
patient received aerosol treatment and cannot be transferred until 2030
--- NOTE | 2020-04-06 20:50 | NUR ---
Opening Shift Note/Transfer Patient transferred from [facility] to room 238 covid unit. Patient oriented to SEAN CABRAL RN primary RN, unit, room, bed, and unit policies regarding patient care and visiting hours. Patient now on continuous telemetry monitoring, tele box # 78 and telemetry reading on arrival to unit is ST 108bpm. Patient placed on bedside oxygen, weighed by bedscale and encouraged to call if they need something. All questions and concerns addressed, patient verbalized understanding. Fall precautions in place. call light within reach and bed alarm on
--- NOTE | 2020-04-06 20:50 | NUR ---
patient arrived at 2049 documentation for 1999 not done by jaxon REYNA. assessment and further care started at 2049 upon arrival
[2020-04-06] MEDS: ALBUTEROL SULF HFA 90MCG INH 200DOSE IN SCH (22:35)
--- NOTE | 2020-04-06 22:35 | NUR ---
patient educated on how to use IS patient verbalized understanding. Optifoam in place to sacrum per md order.
[2020-04-07 03:00] VITALS: BP 143/83
[2020-04-07 04:32] LABS: Basophils # (auto) 0 10 ^3/uL (0-0.2); Basophils % (auto) 0.1 % (0.0-2.0); Eosinophils # (auto) 0 10 ^3/uL (0-0.8); Hematocrit 27.8 % (41.0-53.0); Hemoglobin 9.2 g/dL (13.5-17.5); Lymphocytes # (auto) 0.4 10 ^3/uL (0.4-5.4); Lymphocytes % (auto) 4.8 % (10.0-50.0); Mean Corpuscular Hgb Conc. 32.9 g/dL (32.0-36.0); Mean Corpuscular Volume 84.9 fL (80.0-100.0); Monocytes # (auto) 0.3 10 ^3/uL (0-1.3); Monocytes % (auto) 3.1 % (0.0-12.0); Neutrophils # (auto) 8.1 10 ^3/uL (1.6-8.6); Nucleated Red Blood Cells % 0.1 %; Platelet Count (auto) 296 10^3/uL (140-450); Red Blood Cells 3.27 10^6/uL (4.5-5.90); Red Cell Distribution Width 16.6 % (11.8-14.3); White Blood Cell 8.8 10^3/uL (4.4-10.8)
[2020-04-07 04:48] LABS: INR 3.09 (0.9-1.15)
[2020-04-07 04:52] LABS: Calcium 8.5 mg/dL (8.5-10.1); Potassium 3.7 mmol/L (3.5-5.1)
[2020-04-07 04:54] LABS: BUN/Creatinine Ratio 39.5
[2020-04-07 05:00] VITALS: BP 141/78
[2020-04-07] MEDS: DexAMETHasone SOD PHOS 4 MG/1ML SDV INJ IV SCH ×2 (05:34→17:41)
[2020-04-07] MEDS: ALBUTEROL SULF HFA 90MCG INH 200DOSE IN SCH ×3 (05:34→21:50)
--- NOTE | 2020-04-07 05:34 | NUR ---
MDI ADMINISTERED BY SEAN ADAM.
--- NOTE | 2020-04-07 07:24 | NUR ---
Report given to dayshift RN. Patient denies sob distress or pain.
--- NOTE | 2020-04-07 07:45 | NUR ---
Opening Shift Note Assumed care of patient, awake, alert, and oriented. No S/S of distress or pain. Patient c/o SOB, sitting on side of bed o2 sat 93% on 5l oxymizer. Educated patient on relaxation techniques, patient verbalized understanding. Instructed on POC and to call for assist PRN. Will continue to monitor for changes Q1hr and PRN.
[2020-04-07] MEDS: Ensure HIGH Protein Chocolate 8oz Bottle PO SCH ×3 (08:29→17:41)
[2020-04-07] MEDS: ASCORBIC ACID 1,000 MG TAB PO SCH (08:29)
[2020-04-07] MEDS: ZINC SULFATE 220mg CAP or TAB PO SCH (08:29)
[2020-04-07] MEDS: DOXYCYCLINE 100 MG TAB/CAP PO SCH (08:29)
[2020-04-07 09:00] VITALS: BP 158/91
--- NOTE | 2020-04-07 12:32 | NUR ---
MDI ADMINISTERED BY KAREN ADAM. PT TOL. TRENT
[2020-04-07 13:17] VITALS: BP 143/92
--- NOTE | 2020-04-07 13:30 | NUR ---
SACRUM OPTIFOAM CHANGED TO SACRUM
[2020-04-07] MEDS ORDERED: ENOXAPARIN SOD 100 MG/1 ML SYRINGE SC ONE (15:15)
[2020-04-07] MEDS ORDERED: FUROSEMIDE 20 MG/2 ML VIAL IV ONE (15:45)
[2020-04-07 16:29] VITALS: BP 147/92
--- NOTE | 2020-04-07 17:03 | NUR ---
OOB TO CHAIR PATIENT ABLE TO SIT UP ON SIDE OF BED WITH MINIMAL ASSIST Addendum: 04/07/20 at 1704 by KAREN ANGELA RN RN Amended: Links added.
[2020-04-07] MEDS: TAMSULOSIN HYDROCHLORIDE 0.4 MG CAP PO SCH (17:41)
[2020-04-07] MEDS ORDERED: levoFLOXacin 250 MG TAB PO ONE (17:45)
--- NOTE | 2020-04-07 19:30 | NUR ---
opening note pt A&Ox4. pt is on 6L oxymizer. pt denies pain or discomfort at this time, will continue to monitor. POC discussed with pt. bed in low locked position, call light within reach.
[2020-04-07 21:13] VITALS: BP 113/80
[2020-04-07] MEDS ORDERED: ENOXAPARIN SOD 100 MG/1 ML SYRINGE SC SCH (22:00)
--- NOTE | 2020-04-08 04:30 | NUR ---
blood draw sent to lab
[2020-04-08 05:00] VITALS: BP 139/82
[2020-04-08] MEDS: ALBUTEROL SULF HFA 90MCG INH 200DOSE IN SCH ×3 (06:05→22:17)
[2020-04-08 06:18] LABS: CRP High Sensitivity 8.44 mg/dL (< 0.3)
[2020-04-08] MEDS: DexAMETHasone SOD PHOS 4 MG/1ML SDV INJ IV SCH ×2 (06:38→18:05)
--- NOTE | 2020-04-08 07:07 | NUR ---
closing note pt A&Ox4. pt is in semi fowlers with HOB at 30 degrees. Oxymizer at 7L. bed in low locked position, call light within reach.
--- NOTE | 2020-04-08 07:30 | NUR ---
Opening Shift Note Assumed care of patient, awake and alert. No S/S of distress/SOB or pain. Instructed on POC and to call for assist PRN, will continue to monitor for changes Q1hr and PRN. Fall precautions in place per safety protocol.
[2020-04-08] MEDS: Ensure HIGH Protein Chocolate 8oz Bottle PO SCH ×3 (08:00→18:07)
[2020-04-08 08:52] VITALS: BP 127/63
[2020-04-08] MEDS: ASCORBIC ACID 1,000 MG TAB PO SCH (10:00)
[2020-04-08] MEDS: levoFLOXacin 250 MG TAB PO SCH (10:00)
[2020-04-08] MEDS: ZINC SULFATE 220mg CAP or TAB PO SCH (10:00)
[2020-04-08] MEDS ORDERED: FUROSEMIDE 20 MG/2 ML VIAL IV SCH (10:00)
--- NOTE | 2020-04-08 11:25 | NUR ---
1125 04/08/20 - Contacted by SCAN case management director Kiera who stated patient was still pending transfer to contracted facility, currently still no COVID beds available.
[2020-04-08 12:29] VITALS: BP 128/93
--- NOTE | 2020-04-08 12:43 | NUR ---
Nutrition Assessment Notes Please see attached link for complete assessment Est energy needs BW 78 [id number] kcal (23-25 kcal/kg BW) Est protein needs 78-85g (1.0-1.1g/kg BW) Will reassess prn. Addendum: 04/08/20 at [address] Amended: Links added.
--- NOTE | 2020-04-08 12:45 | NUR ---
Hospitalist Spoke to MD Hendrickson regarding patient status. Per MD Hendrickson, Call pharmacy regarding Coumadin orders. Per MD Hendrickson obtain chest xray. Orders read back and verified. Spoke to pharmacy, and per , he will look over patients chart for Coumadin. Will carry out new orders and cont to monitor patient.
--- NOTE | 2020-04-08 13:00 | NUR ---
Hardware Press Operator MD Muniz at bedside aware of patient status. New orders for Actemra and convalescent plasma. Orders read back and verified. Obtained clearance from MD Mendez for Actemra. However, regarding plasma, MD Mendez states "I will get to it when I get to it." MD Muniz aware of plasma. Will carry out new orders and cont to monitor patient.
[2020-04-08] MEDS ORDERED: methylPREDNISolone SOD SUCC 40 MG/ML VL IV ONE (14:30)
[2020-04-08] MEDS ORDERED: diphenhdrAMINE HCL 50 MG/1 ML VL IV ONE (14:30)
[2020-04-08] MEDS ORDERED: ACETAMINOPHEN 650 mg PER 20 mL UD PO ONE (14:30)
[2020-04-08] MEDS ORDERED: TOCILIZUMAB 400 MG in SODIUM CHL 0.9% 80 ML IV ONE (15:00)
--- NOTE | 2020-04-08 15:45 | NUR ---
Consent for PLASMA Patient signed consent for convalescent plasma. MD Muniz explained medication trial to patient, all questions and concerns address. Patient verbalized understanding of trial medication and agrees to medication administrations. Patient aware, he has to the right to refuse this medication at any time. Will cont to monitor patient. Consent placed in front of chart.
[2020-04-08 16:33] VITALS: BP 106/71
[2020-04-08] MEDS ORDERED: WARFARIN SODIUM 5 MG TAB PO ONE (17:00)
--- NOTE | 2020-04-08 17:41 | NUR ---
CPAP Per family Raisa and Frieda, CPAP information will be obtained tomorrow 04/09. Will endorsed to manager shift nurse for day shift nurse. Per MD Hendrickson input orders for CPAP when numbers are obtained. Will cont to care for patient.
[2020-04-08] MEDS: FUROSEMIDE 20 MG/2 ML VIAL IV SCH (18:05)
[2020-04-08] MEDS: TAMSULOSIN HYDROCHLORIDE 0.4 MG CAP PO SCH (18:07)
--- NOTE | 2020-04-08 19:06 | NUR ---
Endorsed report to night RN. RN aware of CPAP info and orders.
--- NOTE | 2020-04-08 19:20 | NUR ---
opening note pt in semi fowlers with HOB at 30 degrees. pt is on 8L oxymizer, spo2 of 94 percent. POC discussed. bed in low locked position, rails x2 and call light is within reach.
[2020-04-08 19:47] VITALS: BP 106/71
[2020-04-08 22:00] VITALS: BP 158/95
[2020-04-09] VITALS (7 sets, daily range): BP systolic 119–148; BP diastolic 51–93
[2020-04-09] MEDS: ALBUTEROL SULF HFA 90MCG INH 200DOSE IN SCH ×3 (06:00→21:20)
[2020-04-09 06:25] LABS: INR 2.31 (0.9-1.15)
[2020-04-09 06:41] LABS: Basophils # (auto) 0 10 ^3/uL (0-0.2); Basophils % (auto) 0.1 % (0.0-2.0); Eosinophils # (auto) 0 10 ^3/uL (0-0.8); Hematocrit 30.3 % (41.0-53.0); Hemoglobin 9.6 g/dL (13.5-17.5); Lymphocytes # (auto) 0.5 10 ^3/uL (0.4-5.4); Lymphocytes % (auto) 3.8 % (10.0-50.0); Mean Corpuscular Hemoglobin 26.8 pg (28.0-32.0); Mean Corpuscular Hgb Conc. 31.7 g/dL (32.0-36.0); Mean Corpuscular Volume 84.7 fL (80.0-100.0); Monocytes # (auto) 0.8 10 ^3/uL (0-1.3); Monocytes % (auto) 5.8 % (0.0-12.0); Neutrophils % (auto) 90.3 % (37.0-80.0); Nucleated Red Blood Cells % 0.1 %; Platelet Count (auto) 255 10^3/uL (140-450); Red Blood Cells 3.58 10^6/uL (4.5-5.90); Red Cell Distribution Width 16.6 % (11.8-14.3); White Blood Cell 14.4 10^3/uL (4.4-10.8)
[2020-04-09] MEDS: DexAMETHasone SOD PHOS 4 MG/1ML SDV INJ IV SCH ×2 (06:55→18:17)
[2020-04-09] MEDS: FUROSEMIDE 20 MG/2 ML VIAL IV SCH ×2 (06:56→18:17)
--- NOTE | 2020-04-09 07:28 | NUR ---
closing note pt resting in semi [place] with HOB at 30. pt on 8L oxymizer. bed in low locked position, call light within reach.
--- NOTE | 2020-04-09 07:32 | NUR ---
IN PT ROOM FOR MDI TX. PT SPO2 85% ON 6 LITERS OXYMIZER. I INCREASED OXYMIZER TO 11 LITERS; SPO2 SUBSEQUENTLY INCREASED TO 91%. PT HAS PRODUCTIVE COUGH.
[2020-04-09] MEDS: Ensure HIGH Protein Chocolate 8oz Bottle PO SCH ×3 (08:00→18:18)
--- NOTE | 2020-04-09 08:45 | NUR ---
RN AMANDEEP AWARE OF INCREASE IN FIO2 THIS AM. CONSIDERED MONITORING SPO2 FROM RN STATION , PER RN NO MONITORS AVAILABLE AT THIS TIME. PT IS CONNECTED TO PULSE OX AT BEDSIDE. WILL CONTINUE TO MONITOR.
[2020-04-09 08:51] LABS: BUN/Creatinine Ratio 47.6; Calcium 8.4 mg/dL (8.5-10.1); Potassium 3.7 mmol/L (3.5-5.1)
[2020-04-09] MEDS: ASCORBIC ACID 1,000 MG TAB PO SCH (09:49)
[2020-04-09] MEDS: levoFLOXacin 250 MG TAB PO SCH (09:49)
[2020-04-09] MEDS: ZINC SULFATE 220mg CAP or TAB PO SCH (09:49)
--- NOTE | 2020-04-09 10:49 | NUR ---
LIAM YA REGARDING INCREASED O2 USE.
--- NOTE | 2020-04-09 11:27 | NUR ---
Mery YA AT BEDSIDE.
[2020-04-09] MEDS ORDERED: diphenhdrAMINE HCL 50 MG/1 ML VL IV ONE ×2 (13:30→14:30)
[2020-04-09] MEDS ORDERED: ACETAMINOPHEN 650 mg PER 20 mL UD PO ONE ×2 (13:30→14:30)
[2020-04-09] MEDS ORDERED: methylPREDNISolone SOD SUCC 40 MG/ML VL IV ONE ×2 (13:30→14:30)
[2020-04-09] MEDS ORDERED: TOCILIZUMAB 400 MG in SODIUM CHL 0.9% 80 ML IV ONE (15:00)
--- NOTE | 2020-04-09 15:40 | NUR ---
1540 - 04/09/20 - Contacted Dr Hendrickson at [phone] regarding patient's medical status for transfer to network facility. Per, Dr Hendrickson patient is not stable for transfer.
[2020-04-09] MEDS ORDERED: HYDROcodone-ACET 5/325MG TAB PO ONE (16:15)
[2020-04-09] MEDS ORDERED: WARFARIN SODIUM 2.5 MG TAB PO ONE (17:00)
[2020-04-09] MEDS: TAMSULOSIN HYDROCHLORIDE 0.4 MG CAP PO SCH (18:18)
--- NOTE | 2020-04-09 19:00 | NUR ---
Opening Shift Note Assumed care of patient, awake and alert. No S/S of distress/SOB or pain. Patient remains on 11L oxymyzer. O2 saturation at 95%. Instructed on POC and to call for assist PRN, will continue to monitor for changes Q1hr and PRN. Side rails up x2. Bed locked in lowest position. Call light within reach.
--- NOTE | 2020-04-09 21:20 | NUR ---
MDI ADMINISTERED WITH HOLDING CHAMBER ATTACHMENT. SPO2 96% ON 11L OXYMIZER. WILL CONTINUE WITH NEXT SCHEDULED TX.
--- NOTE | 2020-04-09 22:52 | NUR ---
Convalescent Plasma transfusion started. Will continue to monitor patient
--- NOTE | 2020-04-09 23:08 | NUR ---
Reassessment Vital signs within normal limits (see transfusion). Patient in bed with no signs of distress or any adverse reaction.
--- NOTE | 2020-04-09 23:59 | NUR ---
Plasma transfusion finished Vital signs within normal limits (see transfusion). Patient in bed with no signs of distress or any adverse reaction.
[2020-04-10] VITALS (10 sets, daily range): BP systolic 123–142; BP diastolic 81–93
[2020-04-10 06:24] LABS: BUN/Creatinine Ratio 49.6; Calcium 8.3 mg/dL (8.5-10.1); Potassium 3.9 mmol/L (3.5-5.1)
[2020-04-10 06:25] LABS: Basophils # (auto) 0 10 ^3/uL (0-0.2); Basophils % (auto) 0.2 % (0.0-2.0); Eosinophils # (auto) 0 10 ^3/uL (0-0.8); Hematocrit 28.8 % (41.0-53.0); Hemoglobin 9.2 g/dL (13.5-17.5); Lymphocytes # (auto) 0.6 10 ^3/uL (0.4-5.4); Mean Corpuscular Volume 84.4 fL (80.0-100.0); Monocytes % (auto) 8.4 % (0.0-12.0); Neutrophils % (auto) 86.4 % (37.0-80.0); Nucleated Red Blood Cells % 0.1 %; Platelet Count (auto) 212 10^3/uL (140-450); Red Blood Cells 3.41 10^6/uL (4.5-5.90); Red Cell Distribution Width 16.3 % (11.8-14.3); White Blood Cell 11.5 10^3/uL (4.4-10.8)
[2020-04-10 06:32] LABS: CRP High Sensitivity 3.14 mg/dL (< 0.3)
--- NOTE | 2020-04-10 07:00 | NUR ---
Opening Shift Note RECEIVED REPORT FROM NOC RN. Assumed care of patient, awake and alert. PATIENT ON 11 LPM VIA OXYMIZER WITH S/S of SOB AND IN INCREASED WORK OF BREATHING. WILL CONTACT PROVIDER TO UPDATE ON RESPIRATORY STATUS. BED IN LOWEST, LOCKED POSITION WITH SIDERAILS UP x2 AND CALL LIGHT WITHIN REACH. Instructed on POC and to call for assist PRN, will continue to monitor for changes Q1hr and PRN.
[2020-04-10 07:16] LABS: INR 3.71 (0.9-1.15)
[2020-04-10] MEDS: ALBUTEROL SULF HFA 90MCG INH 200DOSE IN SCH ×2 (07:30→22:46)
--- NOTE | 2020-04-10 07:30 | NUR ---
RT NOTE: MDI GIVEN W/O INCIDENT. NO SIGNS OF DISTRESS NOTED. ON 10L OXYMIZER SPO2 99 HR 87 RR 20. WILL CONTINUE TO MONITOR.
--- NOTE | 2020-04-10 09:01 | NUR ---
PAGED DR. YA.
[2020-04-10] MEDS ORDERED: methylPREDNISolone SOD SUCC 125 MG/2 ML VL IV ONE (09:45)
--- NOTE | 2020-04-10 10:10 | NUR ---
RT NOTE: PT PLACED ONTO NON-REBREATHER DUE TO SPO2 AT 82% ON 12L OXYMIZER. WAITING FOR TRANSFER TO [facility] SO PT CAN BE PLACED ONTO HIGH FLOW NASAL CANULA. PT IS A DNR. WILL CONTINUE TO MONITOR.
--- NOTE | 2020-04-10 10:30 | NUR ---
REPORT GIVEN TO JAIR GUERRERO.
--- NOTE | 2020-04-10 10:45 | NUR ---
PATIENT TRANSFERRED TO [facility].
--- NOTE | 2020-04-10 10:52 | NUR ---
SOCIAL SERVICE CONSULT DESIGN CHIEF SPOKE WITH PT'S SPOUSE LOW (AGE [phone] TO OBTAIN COLLATERAL INFORMATION FOR INITIAL ASSESSMENT. PT IS A 80 YR OLD MALE ADMITTED FOR COVID, PNA. PT WAS DC FROM [facility] 02/23 AND SENT TO [facility] FOR REHAB AFTER A MECHANICAL FALL. HE WAS DC LAST WEEK, WAS HOME FOR 3 DAYS PRIOR TO PRESENTING TO [facility] ED WITH COVID SYMPTOMS. SPOUSE STATES SHE BELIEVES PT CONTRACTED COVID AT THE SNF, SHE HAS NO SYMPTOMS. PT WAS INDEPENDENT WITH ADL'S BEFORE HIS FALL, HE AMBULATES WITH A WALKER BUT SPOUSE STATES HE STILL HAD AN UNSTEADY GAIT WHEN [facility] DISCHARGED HIM. PT DOES NOT HAVE AN AHCD, HIS PCP IS DR. DURHAM IN [place]. PT AND SPOUSE NORMALLY RESIDE IN [place] BUT WERE STAYING WITH THEIR SON TARA IN [place] WHILE PT RECOVERED AFTER DC FROM SNF. SPOUSE STATES PT CANNOT BE INTUBATED DUE TO PREVIOUS ISSUES WITH HIS THROAT, SS INFORMED TRACY JANE. NO OTHER SS NEEDS. SS TO REMAIN AVAILABLE NEEDED.
--- NOTE | 2020-04-10 11:00 | NUR ---
RT NOTE: PT NOW IN [facility]. PLACED ONTO HIGH FLOW NASAL CANNULA AT 100% AND 40L. ONCE PT SETTLES IN, I WILL ATTEMPT TO TITRATE FIO2. PT STATES HE IS FEELING MUCH BETTER SINCE CLEARING HIS THROAT AND NOSE WELL BEING PLACED ONTO NON-REBREATHER. REPORT WAS GIVEN THAT PT IS A DNR; BUT PT STATES THAT HE WISHES TO BE RESUSCITATED IF POSSIBLE. WHEN WAS CALLED BY RN, STATED TO DO PT WISHES. RN WILL SPEAK WITH MD DURING ROUNDING. WILL CONTINUE TO MONITOR.
[2020-04-10] MEDS: levoFLOXacin 250 MG TAB PO SCH (11:15)
[2020-04-10] MEDS: ASCORBIC ACID 1,000 MG TAB PO SCH (11:15)
[2020-04-10] MEDS: Ensure HIGH Protein Chocolate 8oz Bottle PO SCH ×3 (11:15→18:42)
[2020-04-10] MEDS: ZINC SULFATE 220mg CAP or TAB PO SCH (11:15)
--- NOTE | 2020-04-10 11:19 | NUR ---
PATIENT ARRIVED TO 261 IN STABLE CONDITION, KEMAL RT PLACED ON HIGH FLOW 40 LPM AT 100% FIO2. A/O X4. RN VERIFIED DNR ORDER AND PATIENT STATED HE DOES NOT WANT TO BE DNR TO PERFORM CPR AND INTUBATE IF NECESSARY TO "SAVE MY LIFE". STATED HE HAS A "FLOPPY WINDPIPE AND DRS ALWAYS TOLD ME IT WOULD BE HARD TO GET A TUBE DOWN THERE BUT IF IT IS NEEDED GO AHEAD AND TRY". WILL VERIFY THAT PATIENT WANTS TO BE FULL CODE WITH DR. SPOKE WITH WHO WAS CRYING ON PHONE, RN REASSURED HER THAT PATIENT IS STABLE AT THIS TIME AND STATED SHE WANTED HIM TO BE FULL CODE WELL.
--- NOTE | 2020-04-10 13:00 | NUR ---
DR STINSON AT BEDSIDE DR AWARE OF PATIENTS REQUEST TO BE FULL CODE, ORDER TO BE FULL CODE.
[2020-04-10] MEDS: TAMSULOSIN HYDROCHLORIDE 0.4 MG CAP PO SCH (18:10)
--- NOTE | 2020-04-10 20:00 | NUR ---
SHIFT OPENING NOTE RECEIVED PATIENT AWAKE, ALERT AND ORIENTED X4. ON ISOLATION FOR COVID POSITIVE. NO SOB, PAIN OR DISTRESS NOTED. ON HIGH FLOW NASAL CANNULA 40L, 80% FI02. POX 99%. PATIENT USES URINAL INDEPENDENTLY. INCONTINENT OF BOWEL. LEFT WRIST 20G SALINE LOCKED. PHYSICAL ASSESSMENT COMPLETED, SEE INTERVENTIONS. INSTRUCTED ON POC AND TO CALL FOR ASSIST NEEDED. BED IS IN THE LOWEST POSITION WITH SIDE RAILS UP X2, CALL LIGHT IS WITHIN REACH.
--- NOTE | 2020-04-10 22:00 | NUR ---
BM CLEANSED WIT SOAP AND WATER. NEW PAD APPLIED UNDER PATIENT. TOLERATED IT WELL.
[2020-04-11] VITALS (9 sets, daily range): BP systolic 106–137; BP diastolic 61–80
--- NOTE | 2020-04-11 01:30 | NUR ---
BM CLEANSED WIT SOAP AND WATER. NEW PAD APPLIED UNDER PATIENT. TOLERATED IT WELL.
--- NOTE | 2020-04-11 03:00 | NUR ---
ROUNDS PATIENT IS QUIETLY LAYING IN BED SLEEPING. NO SOB OR DISTRESS NOTED. REMAINS ON HIGH FLOW. WILL CONTINUE TO CLOSELY MONITOR.
[2020-04-11 06:07] LABS: Partial Thromboplastin Time 47.7 sec (23.64-32.05)
[2020-04-11 06:11] LABS: INR 4.18 (0.9-1.15)
[2020-04-11] MEDS: ALBUTEROL SULF HFA 90MCG INH 200DOSE IN SCH ×3 (06:20→21:55)
--- NOTE | 2020-04-11 06:22 | NUR ---
PT DISTRESSED AND O2 DESATTED TO 89%. INCREASED SETTINGS TO 50LPM, FIO2 80%. SPO2 NOW 92%. NOTIFIED RN OF CHANGES.
[2020-04-11] MEDS: ACETAMINOPHEN 500 MG TAB PO PRN (06:23)
--- NOTE | 2020-04-11 06:30 | NUR ---
PATIENT REPORTS PAIN TO LOWER BACK WOKE UP IN PANIC ASKING FOR A NORCO PER EMAR, TYLENOL ADMINISTERED FOR PAIN. PATIENT REPOSITIONED AND SAID HE FELT BETTER. WILL ENDORSE TO DAY SHIFT TO OBTAIN A NORCO ORDER FOR HIM SINCE HE TAKES IT AT HOME.
--- NOTE | 2020-04-11 07:07 | NUR ---
END OF SHIFT REPORT GIVEN AND CARE ENDORSED TO RADHA ADAM.
[2020-04-11] MEDS: Ensure HIGH Protein Chocolate 8oz Bottle PO SCH ×3 (08:20→18:50)
[2020-04-11] MEDS ORDERED: HYDROcodone-ACET 5/325MG TAB ONE (08:43)
[2020-04-11] MEDS: HYDROcodone-ACET 5/325MG TAB PO PRN ×3 (08:45→21:33)
--- NOTE | 2020-04-11 09:40 | NUR ---
TITRATED HIGH FLOW NC SETTINGS DOWN TO: 40LPM, FIO2 55%. PT TOLERATING CHANGES WELL, SPO2 96%. PT RESTING COMFORTABLY IN BED, NO S/S OF RESPIRATORY DISTRESS NOTED. WILL CONTINUE TO MONITOR.
[2020-04-11] MEDS: levoFLOXacin 250 MG TAB PO SCH (10:29)
[2020-04-11] MEDS: ZINC SULFATE 220mg CAP or TAB PO SCH (10:29)
[2020-04-11] MEDS: ASCORBIC ACID 1,000 MG TAB PO SCH (10:29)
[2020-04-11] MEDS ORDERED: metroNIDAZOLE 500 MG TAB PO ONE (13:30)
[2020-04-11] MEDS ORDERED: metroNIDAZOLE 500 MG TAB PO SCH (14:00)
--- NOTE | 2020-04-11 14:32 | NUR ---
TITRATED HIGH FLOW NC SETTINGS DOWN TO: 35LPM, FIO2 50%. PT TOLERATING CHANGE WELL, SPO2 95%. HEATER WATER RANDELL CHANGED WITHOUT INCIDENT. INHALER TREATMENT ADMINISTERED VIA MDI WITH CHAMBER, NO ADVERSE REACTIONS NOTED. BREATH SOUNDS EXP COARSE CRACKLES, PT CLEARING SECRETIONS WITH STRONG COUGH AND SELF-SUCTIONING WITH YAUNKER. NOTIFIED RN OF CHANGES. BP NOT READING AT THIS TIME. WILL CONTINUE TO MONITOR.
--- NOTE | 2020-04-11 14:40 | NUR ---
Nutrition Follow-up Notes Wt.: 82.3 kg Unable to talk to pt as pt COVID positive. pt is currently on cardiac puree diet along with ensure HP TID with inadequate PO of < 50% x 4 per RN doc Est energy needs BW 78 [id number] kcal (23-25 kcal/kg BW) Est protein needs 78-85g (1.0-1.1g/kg BW) Will reassess prn. Labs: BUN 56 H, CA 8.3 L, GLU 160 H Skin: Raghavendra scale 18 mod risk refer to WC notes for details. GI: Pt had 2 BM today per pot liner. PES: Altered nutrition related lab values r.t current chronic medical condition aeb elev BUN mod hypoalb Will continue to monitor PO intake, skin status, pertinent labs and weight trend. F/u in 3-5 days. Rec.: 1.) continue assistance with meals. 2) continue current plan of care
--- NOTE | 2020-04-11 17:06 | NUR ---
Resumed care at 0710, orders reviewed and ongoing assessments being done. Being treated for Covid-19 and following isolation protocol per policy. Is alert and interacting appropriately and able to make needs known. Does try to participate with self care. In no acute respiratory distress and remains on high flow nasal cannula. At this time, flow down to 35/L with a Fio2 of 50%. Has been expectorating thick white secretions throughout the day and is able to utilize the yaunker. Dr. Muniz, secretary bookkeeper was in the unit and rounded 0800. Continue to titrate High Flow as appropriate. Dr. Hendrickson, hospitalist rounded at 1330. Discussed condition and plan of care. Continues to be incontinent of stool. Has had 2 BM's so far. Soft and brown in color. Has MASD to sacral/buttocks. Maintaining clean and dry. Applied barrier cream and Optifoam dressing in place.
[2020-04-11] MEDS: TAMSULOSIN HYDROCHLORIDE 0.4 MG CAP PO SCH (18:50)
[2020-04-11] MEDS: metroNIDAZOLE 500 MG TAB PO SCH (21:34)
--- NOTE | 2020-04-11 21:55 | NUR ---
OFF HIGH FLOW TOOK PT OFF HIGH FLOW NC AND PLACED ON OXYMIZER 6LPM. HR 108, RR 20, SPO2 97%. PT SAYS HE IS FEELING FINE, DENIES SOB. RESTING COMFORTABLY IN BED, NO S/S OF RESPIRATORY DISTRESS NOTED. NOTIFIED RN OF CHANGES. WILL CONTINUE TO MONITOR.
[2020-04-12] VITALS: BP 124/80
[2020-04-12] MEDS: HYDROcodone-ACET 5/325MG TAB PO PRN ×3 (03:13→22:33)
[2020-04-12 04:00] VITALS: BP 116/77
[2020-04-12 05:49] LABS: Basophils # (auto) 0 10 ^3/uL (0-0.2); Basophils % (auto) 0.3 % (0.0-2.0); Eosinophils # (auto) 0.1 10 ^3/uL (0-0.8); Eosinophils % (auto) 1.5 % (0.0-7.0); Hematocrit 32.4 % (41.0-53.0); Hemoglobin 10.4 g/dL (13.5-17.5); Lymphocytes # (auto) 0.7 10 ^3/uL (0.4-5.4); Lymphocytes % (auto) 9.2 % (10.0-50.0); Mean Corpuscular Hemoglobin 27.5 pg (28.0-32.0); Mean Corpuscular Hgb Conc. 32.2 g/dL (32.0-36.0); Mean Corpuscular Volume 85.4 fL (80.0-100.0); Monocytes # (auto) 0.2 10 ^3/uL (0-1.3); Monocytes % (auto) 3.1 % (0.0-12.0); Neutrophils # (auto) 6.6 10 ^3/uL (1.6-8.6); Neutrophils % (auto) 85.9 % (37.0-80.0); Nucleated Red Blood Cells % 0.1 %; Platelet Count (auto) 137 10^3/uL (140-450); Red Blood Cells 3.79 10^6/uL (4.5-5.90); Red Cell Distribution Width 17.1 % (11.8-14.3); White Blood Cell 7.7 10^3/uL (4.4-10.8)
[2020-04-12 06:00] LABS: INR 3.66 (0.9-1.15); Partial Thromboplastin Time 38.3 sec (23.64-32.05)
[2020-04-12 06:01] LABS: Calcium 7.9 mg/dL (8.5-10.1); Potassium 3.9 mmol/L (3.5-5.1)
[2020-04-12] MEDS: ALBUTEROL SULF HFA 90MCG INH 200DOSE IN SCH ×3 (06:12→21:46)
[2020-04-12] MEDS: metroNIDAZOLE 500 MG TAB PO SCH ×3 (06:18→21:46)
--- NOTE | 2020-04-12 07:40 | NUR ---
Pt states lower abd ache. 650ml out of urinal this shift. Reported to AM shift and to please inform MD. Pt stable at this time. Report given, care endorsed.
--- NOTE | 2020-04-12 07:45 | NUR ---
OPENING SHIFT NOTE: Received report from NOC RNLeighann. Assumed care of patient. Received patient lying in bed, connected to bedside monitor with alarms in place. Patient is currently on Novel Respiratory isolation for COVID-19. Patient is A&Ox3, forgetful and denies pain except for pain with urination. Patient on Oxymizer at 6L with O2sats 94-95%. Patient with PIV to left hand #22 that is patent and intact. Patient is incontinent to bowel and has urinal between legs due to weakness to bilateral upper extremities. Bed is in lowest position, rails up x3 and call light within reach. Updated on plan of care. Will continue to monitor q1hr/PRN.
[2020-04-12 08:00] VITALS: BP 133/82
[2020-04-12] MEDS: Ensure HIGH Protein Chocolate 8oz Bottle PO SCH ×3 (08:00→17:39)
--- NOTE | 2020-04-12 09:20 | NUR ---
MD Dr Muniz to see patient. No new orders received.
--- NOTE | 2020-04-12 09:30 | NUR ---
FAMILY Patient's Raisa called. Password verified. Updated on patient status and plan of care. All questions addressed at this time.
[2020-04-12] MEDS: ZINC SULFATE 220mg CAP or TAB PO SCH (09:52)
[2020-04-12] MEDS: ASCORBIC ACID 1,000 MG TAB PO SCH (09:53)
[2020-04-12] MEDS: levoFLOXacin 250 MG TAB PO SCH (09:53)
[2020-04-12 11:58] VITALS: BP 131/82
[2020-04-12] MEDS ORDERED: cefTRIAXone 1GM/50ML D5W 50 ML IV ONE (12:15)
--- NOTE | 2020-04-12 13:30 | NUR ---
FAMILY T/C from patient's , Raisa. Password verified. Updated on plan of care. Family informed of patient transfer to [facility]. All questions addressed at this time.
--- NOTE | 2020-04-12 14:23 | NUR ---
TRANSFER Report given to JAIR Cooley. Patient transferred to [facility] [facility] unit on tele box with O2 at 6L Oxymizer.
--- NOTE | 2020-04-12 14:36 | NUR ---
Received patient, vs stable, reports body pain, requesting pain medication, patient oriented to room, will continue to monitor.
[2020-04-12 17:00] VITALS: BP 149/83
[2020-04-12] MEDS: TAMSULOSIN HYDROCHLORIDE 0.4 MG CAP PO SCH (17:39)
[2020-04-12] MEDS: cefTRIAXone 1GM/50ML D5W 50 ML IV SCH (21:00)
[2020-04-12 22:00] VITALS: BP 118/69
--- NOTE | 2020-04-13 02:45 | NUR ---
Patient stated he had difficulty breathing on 6L via oximizer. Patients O2 Sat between 87-90. Patient placed on simple mask at 7-8 L with O2 at 90-91%. Will continue to monitor.
[2020-04-13 05:00] VITALS: BP 127/76
[2020-04-13] MEDS: metroNIDAZOLE 500 MG TAB PO SCH (05:21)
[2020-04-13] MEDS: ALBUTEROL SULF HFA 90MCG INH 200DOSE IN SCH ×3 (06:00→22:00)
--- NOTE | 2020-04-13 06:48 | NUR ---
Patient had BM, brown and soft on underpad. Patient cleaned and new optifoam applied to sacral area with zgaurd.
--- NOTE | 2020-04-13 07:40 | NUR ---
Opening shift note Assumed care of patient from NOC RN. Patient is AOX4 no s/s of distress noted. Bed is in lowest locked position, side rails up x3, and call light within reach. Updated patient on plan of care and patient verbalized understanding. Will continue to monitor q1hr and prn.
[2020-04-13 08:33] LABS: INR 2.58 (0.9-1.15); Partial Thromboplastin Time 36.2 sec (23.64-32.05)
[2020-04-13 08:34] VITALS: BP 143/91
[2020-04-13] MEDS: Ensure HIGH Protein Chocolate 8oz Bottle PO SCH ×3 (09:04→17:05)
[2020-04-13] MEDS: cefTRIAXone 1GM/50ML D5W 50 ML IV SCH ×2 (09:04→22:29)
[2020-04-13] MEDS: ASCORBIC ACID 1,000 MG TAB PO SCH (09:05)
[2020-04-13] MEDS: ZINC SULFATE 220mg CAP or TAB PO SCH (09:05)
[2020-04-13 13:00] VITALS: BP 160/77
[2020-04-13] MEDS ORDERED: POTASSIUM EFFERVESENT TAB 25 MEQ PO ONE (14:15)
[2020-04-13] MEDS ORDERED: PANTOPRAZOLE 40 MG TAB PO ONE (14:15)
[2020-04-13] MEDS ORDERED: DexAMETHasone 4 MG TAB PO ONE (14:15)
[2020-04-13] MEDS ORDERED: FUROSEMIDE 40 MG/4 ML VIAL IV ONE (14:15)
--- NOTE | 2020-04-13 14:17 | NUR ---
1415 04/13/20 - Contacted SCAN immigration case manager Kiera at [phone] regarding transfer of patient to [facility]. Per Kiera, [facility] is requesting current COVID 19 test. I explained to Kiera that patient has had total of 4 test the last 3 were all positive the last one was done on 04/08/20. Per Kiera, the facility is requesting a more current test. I contacted the nurse caring for patient to request COVID test today. I also received a call from Dr Montague and I explain to her the request made by [facility].
[2020-04-13 14:59] LABS: Urine Bacteria NONE SEEN /hpf (None Seen); Urine Blood 1+ /uL (Negative); Urine Specific Gravity 1.019 (1.001-1.035); Urine WBC 2 /hpf (0 - 3)
--- NOTE | 2020-04-13 15:00 | NUR ---
WOUND CARE NOTE: WOUND CARE TO REEVALUATE PATIENT FOR SKIN INTEGRITY ISSUES. PATIENT ADMITTED TO [facility] FOR ACUTE ON CHRONIC RESPIRATORY FAILURE. PATIENT LAURY SCORE IS 13. PATIENT NOTED TO HAVE MASD WITH SKIN EROSION VS PRESSURE INJURY TO MEDIAL SACRUM. BEDSIDE NURSE APPLYING ZGUARD AND OPTIFOAM GENTLE SACRAL DRESSING. NO OTHER SKIN INTEGRITY ISSUES NOTED AT THIS TIME. RECOMMEND: FREQUENT Q2HOUR REPOSITIONING CONDITION PERMITS. BID/PRN DRESSING CHANGE TO MEDIAL SACRUM. REDISTRIBUTE PRESSURE USING PILLOWS AND WEDGES. SKIN/WOUND CARE PLAN. CONTINUED MONITORING BY WOUND CARE TEAM. Addendum: 04/13/20 at 1741 by MELO PALM RN RN Amended: Links added.
--- NOTE | 2020-04-13 16:00 | NUR ---
spoke with family Updated patients family member Raisa regarding transfer. Per Raisa she does not want patient going back to the [facility] where he came from. Raisa verbalized wanting to speak to attending physician.
[2020-04-13 16:41] VITALS: BP 122/74
[2020-04-13] MEDS: TAMSULOSIN HYDROCHLORIDE 0.4 MG CAP PO SCH (17:06)
--- NOTE | 2020-04-13 19:10 | NUR ---
End of shift note Endorsed care to NOC RN Chet. No s/s of distress noted.
[2020-04-13 22:00] VITALS: BP 127/70
[2020-04-13] MEDS: DexAMETHasone 4 MG TAB PO SCH (22:29)
[2020-04-13] MEDS: PANTOPRAZOLE 40 MG TAB PO SCH (22:29)
[2020-04-14 05:51] VITALS: BP_SYST 123; BP_SYST 124; BP_DIAS 68; BP_DIAS 72
[2020-04-14] MEDS: ALBUTEROL SULF HFA 90MCG INH 200DOSE IN SCH ×3 (06:37→21:15)
--- NOTE | 2020-04-14 06:37 | NUR ---
Respiratory note: PT IS RESTING COMFORTABLY. NO RESPIRATORY DISTRESS NOTED. 2 PUFFS ALBUTEROL(180MCG) GIVEN VIA MDI BY RN, WITH NO ADVERSE EFFECTS NOTED. SPO2 96% ON 7L OXYMIZER 58 FIO2, HR 102, RR 20, BS COARSE/DIMINISHED BILATERALLY. NO FURTHER RESPIRATORY INTERVENTIONS INDICATED. WILL CONTINUE TO MONITOR PT. CHARTING COMPLETE FROM OUTSIDE OF ROOM.
[2020-04-14 08:30] VITALS: BP 127/68
[2020-04-14 08:48] LABS: INR 2.18 (0.9-1.15)
[2020-04-14] MEDS: Ensure HIGH Protein Chocolate 8oz Bottle PO SCH ×3 (09:08→17:36)
[2020-04-14] MEDS: cefTRIAXone 1GM/50ML D5W 50 ML IV SCH ×2 (09:20→21:14)
[2020-04-14] MEDS: FUROSEMIDE 20 MG/2 ML VIAL IV SCH (09:21)
[2020-04-14] MEDS: ZINC SULFATE 220mg CAP or TAB PO SCH (09:21)
[2020-04-14] MEDS: POTASSIUM EFFERVESENT TAB 25 MEQ PO SCH (09:22)
[2020-04-14] MEDS: DexAMETHasone 4 MG TAB PO SCH ×2 (09:22→21:15)
[2020-04-14] MEDS: PANTOPRAZOLE 40 MG TAB PO SCH ×2 (09:22→21:16)
[2020-04-14] MEDS: ASCORBIC ACID 1,000 MG TAB PO SCH (09:23)
[2020-04-14 12:00] VITALS: BP 133/86
--- NOTE | 2020-04-14 12:21 | NUR ---
Nutrition Follow-up Notes Wt.: 75.8 kg Unable to talk to pt as pt COVID positive. pt is currently on cardiac puree diet along with ensure HP TID with inadequate PO of < 50% x 3 days per RN doc Est energy needs BW 78 [id number] kcal (23-25 kcal/kg BW) Est protein needs 78-85g (1.0-1.1g/kg BW) Will reassess prn. Labs: BUN 47H, GLUC 107H, Ca 7.9L Skin: Raghavendra scale 13 mod risk refer to WC notes for details. GI: Pt had 4 BMs today per rn documentation specialist. PES: Altered nutrition related lab values r.t current chronic medical condition aeb elev BUN mod hypoalb Will continue to monitor PO intake, skin status, pertinent labs and weight trend. F/u in 3-5 days. Rec.: 1.) continue assistance with meals. 2) continue current plan of care
[2020-04-14] MEDS ORDERED: LOPERAMIDE 2 mg/15ml ORAL soln PO ONE (13:00)
--- NOTE | 2020-04-14 14:02 | NUR ---
Respiratory note: PT IS RESTING COMFORTABLY. NO RESPIRATORY DISTRESS NOTED. 2 PUFFS ALBUTEROL(180MCG) GIVEN, WITH NO ADVERSE EFFECTS NOTED. SPO2 94% ON 7L OXYMIZER 58 FIO2, HR 110, RR 18, BS CLEAR/DIMINISHED BILATERALLY. NO FURTHER RESPIRATORY INTERVENTIONS INDICATED. WILL CONTINUE TO MONITOR PT. CHARTING COMPLETE FROM OUTSIDE OF ROOM.
--- NOTE | 2020-04-14 14:52 | NUR ---
1430 04/14/20 - Contacted by SCAN case management coordinator Kiera, who stated that she had received current clinicals and that patient had been accepted to [facility] pending availability of bed. Kiera stated that she would continue to provide follow-up.
[2020-04-14] MEDS ORDERED: WARFARIN SODIUM 2 MG TAB PO ONE (17:00)
[2020-04-14 17:27] VITALS: BP_SYST 132
[2020-04-14] MEDS: TAMSULOSIN HYDROCHLORIDE 0.4 MG CAP PO SCH (17:36)
[2020-04-14] MEDS: HYDROcodone-ACET 5/325MG TAB PO PRN (18:15)
[2020-04-14 21:46] VITALS: BP 120/65
[2020-04-15] MEDS: HYDROcodone-ACET 5/325MG TAB PO PRN ×3 (03:04→23:38)
[2020-04-15 03:36] VITALS: BP 120/65
--- NOTE | 2020-04-15 04:34 | NUR ---
Patient transferred to specialty air mattress.
[2020-04-15 05:01] VITALS: BP 110/65
[2020-04-15 05:46] LABS: INR 2.2 (0.9-1.15); Partial Thromboplastin Time 30.5 sec (23.64-32.05)
[2020-04-15] MEDS: ALBUTEROL SULF HFA 90MCG INH 200DOSE IN SCH ×3 (06:47→22:00)
[2020-04-15] MEDS: Ensure HIGH Protein Chocolate 8oz Bottle PO SCH ×3 (08:41→16:56)
[2020-04-15 09:00] VITALS: BP 141/84
[2020-04-15] MEDS: cefTRIAXone 1GM/50ML D5W 50 ML IV SCH ×2 (09:04→21:16)
[2020-04-15] MEDS: FUROSEMIDE 20 MG/2 ML VIAL IV SCH (09:08)
[2020-04-15] MEDS: POTASSIUM EFFERVESENT TAB 25 MEQ PO SCH (09:10)
[2020-04-15] MEDS: ZINC SULFATE 220mg CAP or TAB PO SCH (09:10)
[2020-04-15] MEDS: DexAMETHasone 4 MG TAB PO SCH ×2 (09:10→21:16)
[2020-04-15] MEDS: PANTOPRAZOLE 40 MG TAB PO SCH ×2 (09:11→21:17)
[2020-04-15] MEDS: ASCORBIC ACID 1,000 MG TAB PO SCH (09:11)
[2020-04-15] MEDS ORDERED: LOPERAMIDE HCL 2 MG CAP PO ONE (11:45)
[2020-04-15 12:22] LABS: BUN/Creatinine Ratio 37.1; Calcium 7.8 mg/dL (8.5-10.1); Potassium 4.3 mmol/L (3.5-5.1)
--- NOTE | 2020-04-15 12:50 | NUR ---
1250 04/15/2020 - Contacted by adult protective caseworker MELIDA Qureshi, who stated [facility] has not beds. The facility has opened up it's 3rd unit to accommodate COVID positive patients. Per Kiera, patient is on the waiting list, she will f/u tomorrow.
[2020-04-15 13:00] VITALS: BP 143/85
[2020-04-15] MEDS ORDERED: CHOLECALCIFEROL (VITD3) 1,000UNIT=25mCg TAB PO ONE (16:15)
[2020-04-15] MEDS: TAMSULOSIN HYDROCHLORIDE 0.4 MG CAP PO SCH (16:56)
[2020-04-15] MEDS ORDERED: WARFARIN SODIUM 2 MG TAB PO ONE (17:00)
[2020-04-15 17:36] VITALS: BP 147/87
--- NOTE | 2020-04-15 21:15 | NUR ---
RT NOTE PT WAS SEEN BY RT FOR MDI TX. PT TOLERATES WELL VIA SPACER. PT IS ON 5L NASAL CANNULA. BEDSIDE POX PROVIDED FOR MONITORING. CONT ORDERED Addendum: 04/15/20 at 2316 by Ladan Monahan RT Amended: Links added.
[2020-04-15 22:11] VITALS: BP 137/84
[2020-04-16 05:29] VITALS: BP 125/79
[2020-04-16] MEDS: ALBUTEROL SULF HFA 90MCG INH 200DOSE IN SCH ×3 (06:15→22:01)
[2020-04-16 06:27] LABS: Basophils # (auto) 0 10 ^3/uL (0-0.2); Basophils % (auto) 0.1 % (0.0-2.0); Eosinophils # (auto) 0 10 ^3/uL (0-0.8); Hematocrit 31.9 % (41.0-53.0); Hemoglobin 10.3 g/dL (13.5-17.5); Lymphocytes # (auto) 0.7 10 ^3/uL (0.4-5.4); Lymphocytes % (auto) 3.9 % (10.0-50.0); Mean Corpuscular Hemoglobin 27.6 pg (28.0-32.0); Mean Corpuscular Hgb Conc. 32.4 g/dL (32.0-36.0); Mean Corpuscular Volume 85.3 fL (80.0-100.0); Monocytes # (auto) 0.6 10 ^3/uL (0-1.3); Monocytes % (auto) 3.3 % (0.0-12.0); Neutrophils # (auto) 15.5 10 ^3/uL (1.6-8.6); Neutrophils % (auto) 92.7 % (37.0-80.0); Platelet Count (auto) 109 10^3/uL (140-450); Red Blood Cells 3.73 10^6/uL (4.5-5.90); Red Cell Distribution Width 18.2 % (11.8-14.3); White Blood Cell 16.8 10^3/uL (4.4-10.8)
[2020-04-16 06:38] LABS: INR 2.32 (0.9-1.15); Partial Thromboplastin Time 29.5 sec (23.64-32.05)
[2020-04-16 06:47] LABS: Potassium 4.7 mmol/L (3.5-5.1)
[2020-04-16 06:52] LABS: BUN/Creatinine Ratio 39.8; Calcium 7.9 mg/dL (8.5-10.1)
[2020-04-16] MEDS: Ensure HIGH Protein Chocolate 8oz Bottle PO SCH ×3 (08:26→17:33)
[2020-04-16] MEDS: cefTRIAXone 1GM/50ML D5W 50 ML IV SCH ×2 (08:30→22:00)
[2020-04-16] MEDS: HYDROcodone-ACET 5/325MG TAB PO PRN ×2 (08:30→20:22)
[2020-04-16 09:00] VITALS: BP 136/77
[2020-04-16] MEDS: PANTOPRAZOLE 40 MG TAB PO SCH ×2 (09:18→22:02)
[2020-04-16] MEDS: DexAMETHasone 4 MG TAB PO SCH ×2 (09:18→22:02)
[2020-04-16] MEDS: CHOLECALCIFEROL (VITD3) 1,000UNIT=25mCg TAB PO SCH (09:18)
[2020-04-16 13:00] VITALS: BP_SYST 127; BP_SYST 137; BP_DIAS 81; BP_DIAS 97
--- NOTE | 2020-04-16 14:36 | NUR ---
Respiratory note: PT WS PRONING. PT DID NOT WANT TO DO HIS MDI AT THIS TIME. PT ON 5 LPM OXYMIZER IN NO DISTRESS AT THIS TIME. RN INFORMED.
--- NOTE | 2020-04-16 15:43 | NUR ---
1540 04/16/2020 - Contacted by SCAN showcase maker Kiera, who stated there are still no available beds at [facility]. Patient remains on waiting list for available bed. Kiera stated that if bed becomes available the intake nurse will call the nurse's station.
[2020-04-16 17:00] VITALS: BP 131/79
[2020-04-16] MEDS ORDERED: WARFARIN SODIUM 1 MG TAB PO ONE (17:00)
[2020-04-16] MEDS: TAMSULOSIN HYDROCHLORIDE 0.4 MG CAP PO SCH (17:34)
[2020-04-16 22:00] VITALS: BP 115/53
[2020-04-17 05:09] VITALS: BP 128/91
[2020-04-17] MEDS: ALBUTEROL SULF HFA 90MCG INH 200DOSE IN SCH ×3 (06:46→22:21)
[2020-04-17] MEDS: Ensure HIGH Protein Chocolate 8oz Bottle PO SCH ×3 (08:31→18:24)
[2020-04-17 08:51] VITALS: BP 149/88
[2020-04-17] MEDS: cefTRIAXone 1GM/50ML D5W 50 ML IV SCH (09:04)
[2020-04-17] MEDS: CHOLECALCIFEROL (VITD3) 1,000UNIT=25mCg TAB PO SCH (09:09)
[2020-04-17] MEDS: PANTOPRAZOLE 40 MG TAB PO SCH ×2 (09:09→22:22)
[2020-04-17] MEDS: DexAMETHasone 4 MG TAB PO SCH ×2 (09:10→22:22)
[2020-04-17 09:43] LABS: Basophils # (auto) 0.1 10 ^3/uL (0-0.2); Basophils % (auto) 0.5 % (0.0-2.0); Eosinophils # (auto) 0.1 10 ^3/uL (0-0.8); Eosinophils % (auto) 0.5 % (0.0-7.0); Hematocrit 35.6 % (41.0-53.0); Hemoglobin 11.1 g/dL (13.5-17.5); Lymphocytes # (auto) 0.8 10 ^3/uL (0.4-5.4); Lymphocytes % (auto) 5.7 % (10.0-50.0); Mean Corpuscular Hemoglobin 27.9 pg (28.0-32.0); Mean Corpuscular Volume 89.7 fL (80.0-100.0); Monocytes # (auto) 0.5 10 ^3/uL (0-1.3); Monocytes % (auto) 3.6 % (0.0-12.0); Neutrophils # (auto) 12.9 10 ^3/uL (1.6-8.6); Neutrophils % (auto) 89.7 % (37.0-80.0); Nucleated Red Blood Cells % 0.1 %; Platelet Count (auto) 66 10^3/uL (140-450); Red Blood Cells 3.97 10^6/uL (4.5-5.90); White Blood Cell 14.4 10^3/uL (4.4-10.8)
[2020-04-17 10:08] LABS: BUN/Creatinine Ratio 45.9; Calcium 8.4 mg/dL (8.5-10.1)
--- NOTE | 2020-04-17 12:21 | NUR ---
Nutrition Follow-up Notes Wt.: 75.8 kg Unable to talk to pt as pt COVID positive. pt is currently on cardiac puree diet along with ensure HP TID. Pt with inadequate intake, Pt intake not recorded since last nutrition note. Est energy needs BW 78 [id number] kcal (23-25 kcal/kg BW) Est protein needs 78-85g (1.0-1.1g/kg BW) Will reassess prn. Labs: BUN 41H, GLUC 123H, Ca 7.9L, Alb 2.1L Skin: Raghavendra scale 17 mod risk refer to WC notes for details. GI: Pt had 2 BMs 7/2 per [facility]. PES: Altered nutrition related lab values r.t current chronic medical condition aeb elev BUN mod hypoalb Will continue to monitor PO intake, skin status, pertinent labs and weight trend. F/u in 3-5 days. Rec.: 1.) continue assistance with meals. 2) continue current plan of care
[2020-04-17 12:29] LABS: INR 2.27 (0.9-1.15)
[2020-04-17 13:00] VITALS: BP 146/90
[2020-04-17 16:35] VITALS: BP 143/92
[2020-04-17] MEDS ORDERED: WARFARIN SODIUM 1 MG TAB PO ONE (17:30)
[2020-04-17] MEDS: AMPICILLIN INJ 500 MG in SODIUM CHL 0.9% 50 ML IV SCH ×2 (18:23→23:30)
[2020-04-17] MEDS: TAMSULOSIN HYDROCHLORIDE 0.4 MG CAP PO SCH (18:24)
--- NOTE | 2020-04-17 19:15 | NUR ---
Opening Shift Note Assumed care of patient, awake and alert. No S/S of distress/SOB or pain. Patient safety measures in place bed in lowest position, side rails up x2, and call light within reach. Instructed on POC and to call for assist PRN, will continue to monitor for changes Q1hr and PRN.
[2020-04-17 22:23] VITALS: BP 94/53
[2020-04-17 22:25] VITALS: BP 132/83
[2020-04-17] MEDS: HYDROcodone-ACET 5/325MG TAB PO PRN (23:31)
[2020-04-18 01:26] VITALS: BP 132/83
[2020-04-18 05:13] VITALS: BP 139/79
[2020-04-18] MEDS: AMPICILLIN INJ 500 MG in SODIUM CHL 0.9% 50 ML IV SCH ×3 (05:41→17:24)
[2020-04-18] MEDS: ALBUTEROL SULF HFA 90MCG INH 200DOSE IN SCH ×3 (05:41→22:20)
[2020-04-18] MEDS: HYDROcodone-ACET 5/325MG TAB PO PRN (05:42)
--- NOTE | 2020-04-18 05:45 | NUR ---
JUDIE ADMINISTERED BY TREVOR Dykes
[2020-04-18 07:11] LABS: Basophils # (auto) 0 10 ^3/uL (0-0.2); Basophils % (auto) 0.1 % (0.0-2.0); Eosinophils # (auto) 0 10 ^3/uL (0-0.8); Hematocrit 31.2 % (41.0-53.0); Lymphocytes # (auto) 0.5 10 ^3/uL (0.4-5.4); Mean Corpuscular Hemoglobin 27.9 pg (28.0-32.0); Mean Corpuscular Hgb Conc. 32.2 g/dL (32.0-36.0); Mean Corpuscular Volume 86.6 fL (80.0-100.0); Monocytes # (auto) 0.6 10 ^3/uL (0-1.3); Neutrophils # (auto) 14.8 10 ^3/uL (1.6-8.6); Neutrophils % (auto) 92.9 % (37.0-80.0); Platelet Count (auto) 100 10^3/uL (140-450); Red Cell Distribution Width 19.3 % (11.8-14.3); White Blood Cell 15.9 10^3/uL (4.4-10.8)
[2020-04-18 07:23] LABS: INR 2.14 (0.9-1.15)
[2020-04-18] MEDS: Ensure HIGH Protein Chocolate 8oz Bottle PO SCH ×3 (08:10→17:24)
[2020-04-18 08:42] VITALS: BP 134/69
[2020-04-18] MEDS: DexAMETHasone 4 MG TAB PO SCH ×2 (09:59→22:08)
[2020-04-18] MEDS: PANTOPRAZOLE 40 MG TAB PO SCH ×2 (10:00→22:08)
[2020-04-18] MEDS: CHOLECALCIFEROL (VITD3) 1,000UNIT=25mCg TAB PO SCH (10:04)
[2020-04-18 12:53] VITALS: BP 125/74
[2020-04-18 16:22] VITALS: BP 132/82
[2020-04-18] MEDS ORDERED: WARFARIN SODIUM 2 MG TAB PO ONE (17:00)
[2020-04-18] MEDS: TAMSULOSIN HYDROCHLORIDE 0.4 MG CAP PO SCH (17:25)
--- NOTE | 2020-04-18 19:30 | NUR ---
Opening Shift Note Assumed care of patient, awake and alert x4. No S/S of distress/SOB or pain. Patient is on 2L/min via Oxymizer, suction is connected and within reach of patient. Call light is within reach, side rails up x2, fall precautions are in place. Instructed on POC and to call for assist PRN, will continue to monitor for changes Q1hr and PRN.
--- NOTE | 2020-04-18 20:20 | NUR ---
Patient had a BM, patient cleaned and repositioned for comfort. Call light is within reach.
--- NOTE | 2020-04-18 21:40 | NUR ---
Informed Savi john RN, the patient's recent COVID SWAB test came back negative.
[2020-04-18 22:25] VITALS: BP 128/65
--- NOTE | 2020-04-19 00:25 | NUR ---
Called and gave report to Pratik ADAM, patient is going to room 293 bed A.
--- NOTE | 2020-04-19 00:43 | NUR ---
Patient is no longer going to 293 bed A. Remains in 246 bed B.
[2020-04-19] MEDS: AMPICILLIN INJ 500 MG in SODIUM CHL 0.9% 50 ML IV SCH ×3 (00:53→12:37)
--- NOTE | 2020-04-19 02:36 | NUR ---
Patient transferred to [facility].
[2020-04-19 05:37] VITALS: BP 135/84
[2020-04-19] MEDS: ALBUTEROL SULF HFA 90MCG INH 200DOSE IN SCH ×3 (06:30→22:45)
[2020-04-19] MEDS: Ensure HIGH Protein Chocolate 8oz Bottle PO SCH ×3 (08:56→17:52)
[2020-04-19 09:00] VITALS: BP 129/80
[2020-04-19] MEDS: CHOLECALCIFEROL (VITD3) 1,000UNIT=25mCg TAB PO SCH (09:25)
[2020-04-19] MEDS: DexAMETHasone 4 MG TAB PO SCH ×2 (09:25→20:57)
[2020-04-19] MEDS: PANTOPRAZOLE 40 MG TAB PO SCH ×2 (09:25→20:57)
[2020-04-19 10:23] LABS: Basophils # (auto) 0 10 ^3/uL (0-0.2); Basophils % (auto) 0.2 % (0.0-2.0); Eosinophils # (auto) 0 10 ^3/uL (0-0.8); Hematocrit 37.5 % (41.0-53.0); Hemoglobin 11.7 g/dL (13.5-17.5); Lymphocytes # (auto) 1.1 10 ^3/uL (0.4-5.4); Lymphocytes % (auto) 6.2 % (10.0-50.0); Mean Corpuscular Hemoglobin 27.3 pg (28.0-32.0); Mean Corpuscular Hgb Conc. 31.2 g/dL (32.0-36.0); Mean Corpuscular Volume 87.7 fL (80.0-100.0); Monocytes # (auto) 0.6 10 ^3/uL (0-1.3); Monocytes % (auto) 3.5 % (0.0-12.0); Neutrophils # (auto) 16.6 10 ^3/uL (1.6-8.6); Neutrophils % (auto) 90.1 % (37.0-80.0); Nucleated Red Blood Cells % 0.1 %; Platelet Count (auto) 133 10^3/uL (140-450); Red Blood Cells 4.28 10^6/uL (4.5-5.90); White Blood Cell 18.4 10^3/uL (4.4-10.8)
[2020-04-19 10:26] LABS: Red Cell Distribution Width 20.5 % (11.8-14.3)
[2020-04-19 10:37] LABS: INR 1.66 (0.9-1.15)
[2020-04-19 13:00] VITALS: BP 149/79
[2020-04-19 17:00] VITALS: BP 142/69
[2020-04-19] MEDS ORDERED: WARFARIN SODIUM 2 MG TAB PO ONE (17:00)
[2020-04-19] MEDS: TAMSULOSIN HYDROCHLORIDE 0.4 MG CAP PO SCH (17:52)
--- NOTE | 2020-04-19 20:00 | NUR ---
Opening Shift Note Assumed care of patient, awake and alert x4. Patient denies pain or shortness of breath at this time. No sign/symptoms of distress noted or verbalized at this time. Instructed on plan of care and encouraged patient to call for assistance as needed, patient verbalized understanding. Bed is locked in lowest position, side rails x 2 are up, call light is within reach, and bed alarm is on.
[2020-04-19] MEDS: LINEZOLID 600MG/300ML 300 ML IV SCH (20:57)
[2020-04-19 22:00] VITALS: BP 135/84
--- NOTE | 2020-04-19 22:45 | NUR ---
Respiratory note: AT BEDSIDE FOR MDI. PT SPO2 NOTED AT 87% ON 2L OXYMIZER. INCREASED TO 3L ON OXYMIZER. SPO2 NOTED AT 90%.
[2020-04-20] MEDS: HYDROcodone-ACET 5/325MG TAB PO PRN ×3 (00:56→13:33)
[2020-04-20 05:00] VITALS: BP 159/105
[2020-04-20] MEDS: ALBUTEROL SULF HFA 90MCG INH 200DOSE IN SCH ×3 (05:23→22:10)
[2020-04-20] MEDS: ACETAMINOPHEN 500 MG TAB PO PRN (05:23)
--- NOTE | 2020-04-20 06:28 | NUR ---
Respiratory note: HR 88, RR 16, SPO2 96% ON 3L OXYMIZER, BS ARE CLEAR. INHALER ADMINISTERED, TOLERATED WELL. NO SIGNS OR SYMPTOMS OF RESPIRATORY DISTRESS NOTED AT THIS TIME.
[2020-04-20] MEDS: Ensure HIGH Protein Chocolate 8oz Bottle PO SCH ×3 (08:00→18:16)
[2020-04-20 09:09] LABS: INR 1.88 (0.9-1.15); Partial Thromboplastin Time 25.6 sec (23.64-32.05)
[2020-04-20 09:24] VITALS: BP 130/66
[2020-04-20] MEDS: LINEZOLID 600MG/300ML 300 ML IV SCH ×2 (09:37→23:25)
[2020-04-20] MEDS: DexAMETHasone 4 MG TAB PO SCH ×2 (09:38→23:26)
[2020-04-20] MEDS: PANTOPRAZOLE 40 MG TAB PO SCH ×2 (09:39→23:26)
[2020-04-20] MEDS: CHOLECALCIFEROL (VITD3) 1,000UNIT=25mCg TAB PO SCH (09:39)
[2020-04-20 13:00] VITALS: BP 147/83
--- NOTE | 2020-04-20 13:19 | NUR ---
Respiratory note: HR 112, RR 14, SPO2 95% ON RA, BS ARE CLEAR. MDI ADMINISTERED, TOLERATED WELL. NO SIGNS OR SYMPTOMS OF RESPIRATORY DISTRESS NOTED AT THIS TIME.
[2020-04-20] MEDS ORDERED: ALBUAER3 IN (14:31)
--- NOTE | 2020-04-20 15:33 | NUR ---
Nutrition Follow-up Notes Wt.: 92.3 kg Unable to talk to pt as pt COVID positive. pt is currently on cardiac puree diet along with ensure HP TID. Pt intake improved aeb pt with 100% po intake x 2 per RN nutrition doc, will continue to monitor Est energy needs BW 78 [id number] kcal (23-25 kcal/kg BW) Est protein needs 78-85g (1.0-1.1g/kg BW) Will reassess prn. Labs: BUn 39H, Ca 8.4L, Alb 2.1L Skin: Raghavendra scale 16 mod risk refer to WC notes for details. GI: Pt had 4 BMs 7/6 per railroad wheels and axle inspector. PES: Altered nutrition related lab values r.t current chronic medical condition aeb elev BUN mod hypoalb Will continue to monitor PO intake, skin status, pertinent labs and weight trend. F/u in 3-5 days. Rec.: 1.) continue assistance with meals. 2) continue current plan of care
--- NOTE | 2020-04-20 16:30 | NUR ---
WOUND CARE NOTE: WOUND CARE IN TO REEVALUATE PATIENT FOR SKIN INTEGRITY ISSUES. PATIENT ADMITTED TO [facility] FOR ACUTE ON CHRONIC RESPIRATORY FAILURE. PATIENT LAURY SCORE IS 16. PATIENT NOTED TO HAVE MASD WITH SKIN EROSION VS PRESSURE INJURY TO MEDIAL SACRUM. CLEANSED WOUND WITH NORMAL SALINE, PATTED DRY WITH STERILE GAUZE, APPLIED ZGUARD, COVERED WITH OPTIFOAM GENTLE SACRAL DRESSING. NO OTHER SKIN INTEGRITY ISSUES NOTED AT THIS TIME. RECOMMEND: FREQUENT Q2HOUR REPOSITIONING CONDITION PERMITS. BID/PRN DRESSING CHANGE TO MEDIAL SACRUM. REDISTRIBUTE PRESSURE USING PILLOWS AND WEDGES. SKIN/WOUND CARE PLAN. CONTINUED MONITORING BY WOUND CARE TEAM. Addendum: 04/20/20 at 1718 by MELO PALM RN RN Amended: Links added.
[2020-04-20 17:00] VITALS: BP 137/91
[2020-04-20] MEDS ORDERED: WARFARIN SODIUM 2 MG TAB PO ONE (17:00)
--- NOTE | 2020-04-20 17:29 | NUR ---
re-assessment Per consult hospice evaluation. I have called patients Raisa and informed her of consult for hospice evaluation. I have read Raisa a list of medicare providers. Per Raisa [facility] to call her. Per Lore at [facility] she has set up an appointment with Raisa for 10am 04/21/20. I will follow up in the morning on acceptance. Addendum: 04/20/20 at 1733 by Sienna CANDELARIO Amended: Links added.
[2020-04-20] MEDS: TAMSULOSIN HYDROCHLORIDE 0.4 MG CAP PO SCH (18:16)
--- NOTE | 2020-04-20 19:20 | NUR ---
Opening Shift Note Assumed care of patient, awake and alert x4. Patient denies pain or shortness of breath at this time. No sign/symptoms of distress noted or verbalized at this time. Instructed on plan of care and to call for assistance as needed, patient verbalized understanding. Bed is locked in lowest position, side rails x 2 are up, call light is within reach, and bed alarm is on.
[2020-04-20 21:28] VITALS: BP 137/91
[2020-04-20 22:08] VITALS: BP 141/58
[2020-04-21 05:01] VITALS: BP 124/68
[2020-04-21] MEDS: ALBUTEROL SULF HFA 90MCG INH 200DOSE IN SCH ×2 (06:54→14:02)
[2020-04-21 06:55] LABS: INR 2.46 (0.9-1.15)
--- NOTE | 2020-04-21 07:30 | NUR ---
Opening shift note Assumed care of patient from NOC JAIR Cristobal. Patient is AOx4 no signs and symptoms of distress noted. Bed is in lowest locked position, side rails up x2, and call light is within reach. Updated patient on plan of care and patient verbalized understanding. Will continue to monitor q1hr and PRN.
[2020-04-21 08:47] VITALS: BP 126/84
[2020-04-21] MEDS: DexAMETHasone 4 MG TAB PO SCH (09:37)
[2020-04-21] MEDS: LINEZOLID 600MG/300ML 300 ML IV SCH (09:37)
[2020-04-21] MEDS: CHOLECALCIFEROL (VITD3) 1,000UNIT=25mCg TAB PO SCH (09:38)
[2020-04-21] MEDS: PANTOPRAZOLE 40 MG TAB PO SCH (09:38)
[2020-04-21] MEDS: Ensure HIGH Protein Chocolate 8oz Bottle PO SCH ×2 (09:50→13:35)
--- NOTE | 2020-04-21 09:57 | NUR ---
Change of medication Administered ordered Zyvox at 0937. At 0948 medication noted to be D/C'd. Medication was stopped and patient was updated on change of medication. Will continue care.
--- NOTE | 2020-04-21 11:17 | NUR ---
Received call from hospice received call from Lore from [facility] regarding patient discharge home with hospice. Transportation has been arranged and is scheduled between 2-3pm. Lore's phone number is .
--- NOTE | 2020-04-21 11:25 | NUR ---
Paged Paged placed to Dr. Hendrickson regarding D/C, awaiting call back.
--- NOTE | 2020-04-21 12:40 | NUR ---
Received call back from Received call back from Dr. Hendrickson, updated MD on patient D/C with home hospice. Per MD she will update the D/C order, awaiting the new D/C orders, will follow through once received. Will continue care.
[2020-04-21 13:00] VITALS: BP 133/76
--- NOTE | 2020-04-21 13:24 | NUR ---
re-assessment Patients aranza Kline has signed all consents. Equipment has been delivered. Transportation has been set up between 2pm and 3pm with [facility]. Raisa verbalized understanding and agreed to discharge plan home on hospice. Addendum: 04/21/20 at 1328 by Sienna CANDELARIO Amended: Links added.
[2020-04-21 13:41] VITALS: BP 133/76
[2020-04-21] MEDS ORDERED: LINE1TAB6 PO (13:50)
--- NOTE | 2020-04-21 14:15 | NUR ---
Transport services Patient was to be picked up by [facility] team. Upon arrival [facility] refused to berry picker patient due to the patient being located on the COVID unit. Informed [facility] that patient is COVID negative. Per transport they cannot enter the unit and they will return at a later time for berry picker, transport team stated that they will inform [facility].
--- NOTE | 2020-04-21 14:25 | NUR ---
Spoke with hospice Called [facility] and informed them about [facility] refusal to take patient. Per Hudson they will arrange transportation for a later time today.
--- NOTE | 2020-04-21 14:35 | NUR ---
Spoke with social organization professor Spoke with Sienna CARVER, regarding issue with safety transport. Per Sienna patient needs to be moved out of isolation in order for transportaion to be able to complete knot picker cloth. Per Sienna Borjas transportation will be back at 1530 for knot picker cloth.
--- NOTE | 2020-04-21 14:45 | NUR ---
Called charge nurse Called implementation analyst Joslyn and left message with JAIR Lawton regarding transportation issue.
--- NOTE | 2020-04-21 15:30 | NUR ---
Patient transferred out of COVID unit Patient was moved to [place] for transport picking table worker. Report given to JAIR Lawton. No s/s of distress noted at time of departure.
--- NOTE | 2020-04-21 15:45 | NUR ---
PT TRANSFERRED PT TRANSFERRED TO [facility]. PT IS ALERT AND AWAKE LAYING IN BED IN SEMI-FOWLERS POSITION. PT IS ON 3 L OXYMIZER WITH EVEN AND UNLABORED RESPIRATIONS. BED IS IN LOWEST LOCKED POSITION WITH SIDE RAILS UP X2, CALL LIGHT IS WITHIN REACH, AND BED ALARM SET FOR SAFETY. PT CURRENTLY HAS NO IV OR TELE MONITOR IN PLACE WAS PREVIOUSLY REMOVED FOR PENDING TRANSFER. PT CURRENTLY AWAITING D/C HOME WITH HOME [facility], CURRENTLY AWAITING TRANSPORTATION COMPANY TO ARRIVE TO TRANSFER PT BACK HOME. PT IS AWARE AND VERBALIZES UNDERSTANDING. WILL CONTINUE TO MONITOR.
--- NOTE | 2020-04-21 16:04 | NUR ---
re-assessment Transportation has been changed to [facility] between 4pm and 430pm. [facility]ard has been notified. Addendum: 04/21/20 at 1605 by Sienna Borjas SS Amended: Links added.
--- NOTE | 2020-04-21 16:44 | NUR ---
Pt Discharged Discharge instructions given as ordered. Encourage to follow up with PMD as instructed. All questions and concerns addressed. Patient verbalized understanding. Medication reconciliation form completed and copy given to patient. IV and Tele monitor previously removed. Patient transported home via [facility] with all personal belongings, accompanied by transportation staff. No distress noted at time of departure.
[2020-04-21] MEDS ORDERED: WARFARIN SODIUM 1 MG TAB PO ONE (17:00)
== END 2020-04-21 16:44 | disposition hospice, home (50) | DRG 871 ==
LOC: ER 09:44 → EDBD 09:44 → TELE 09:45 → TELE-WESTW 23:43 → TELE-EAST 04-06 21:00 → DOU IN ICU 04-10 10:00 → TELE-DOU 04-12 13:59 → TELE-EAST 04-12 15:33
PROVIDERS: ADMIT Nurse Practitioner Acute Care; ATTEND Internal Medicine Nephrology
PROC: 30233K1 Transfusion of Nonautologous Frozen Plasma into Peripheral Vein, Percutaneous Approach (ICD-10-PCS; principal; 2020-04-09)
DX: A41.89 Other specified sepsis (principal); U07.1 COVID-19; J96.21 Acute and chronic respiratory failure with hypoxia; N17.0 Acute kidney failure with tubular necrosis; J12.89 Other viral pneumonia; J44.1 Chronic obstructive pulmonary disease with (acute) exacerbation; D68.69 Other thrombophilia; I48.19 Other persistent atrial fibrillation; E44.0 Moderate protein-calorie malnutrition; J45.901 Unspecified asthma with (acute) exacerbation; I48.92 Unspecified atrial flutter; J44.0 Chronic obstructive pulmonary disease with (acute) lower respiratory infection; R65.20 Severe sepsis without septic shock; D63.1 Anemia in chronic kidney disease; E88.09 Other disorders of plasma-protein metabolism, not elsewhere classified; I12.9 Hypertensive chronic kidney disease with stage 1 through stage 4 chronic kidney disease, or unspecified chronic kidney disease; N40.0 Benign prostatic hyperplasia without lower urinary tract symptoms; M94.8X9 Other specified disorders of cartilage, unspecified sites; N18.3 Chronic kidney disease, stage 3 (moderate); Z86.711 Personal history of pulmonary embolism; Z90.89 Acquired absence of other organs; Z79.899 Other long term (current) drug therapy; Z82.49 Family history of ischemic heart disease and other diseases of the circulatory system; Z79.01 Long term (current) use of anticoagulants; Z51.5 Encounter for palliative care; Z68.33 Body mass index [BMI] 33.0-33.9, adult
CPT/HCPCS: 36415; 36600; 71045; 80048; 80053; 81001; 82728; 82805; 83605; 83615; 83735; 83880; 84439; 84443; 84484; 85025; 85379; 85610; 85730; 86141; 86850; 86900; 86901; 87040; 87070; 87081; 87086; 87088; 87186; 87205; 87493; 87804; 87880; 93005; 94640; 99291; G0378; J0696; J1100